=== PATIENT | male | born 1945 | race Two or more races ===

== ENCOUNTER → 2020-04-26 10:54 | Outpatient (BNVA) | payer MEDICARE, SELFPAY | PROVIDERS: Visit Provider Urology | DX: Z76.89 Persons encountering health services in other specified circumstances (principal) | CPT/HCPCS: Q3014 ==

== ENCOUNTER 2020-08-10 15:57 | Outpatient (REF) | payer MEDICARE, SELFPAY ==
--- NOTE | ~2020-08-10 | US_ITS ---
EXAMINATION: US RETROPERITONEAL LIMITED (RENAL ONLY) CLINICAL INFORMATION: Calculus of kidney. COMPARISON: None. TECHNIQUE: Real-time imaging of the kidneys. FINDINGS: RIGHT KIDNEY: 11.2 x 5.8 x 6.2 cm (SAG x AP x TRV). The kidney is normal in size, contour, and echogenicity. Renal cortical thickness is normal. No hydronephrosis. There is an anechoic exophytic cyst in the midpole measuring 1.4 x 1.4 x 1.5 cm. There is a nonobstructive echogenic stone in lower pole measuring 0.3 x 0.3 cm. LEFT KIDNEY: 12.1 x 5.2 x 6.1 cm (SAG x AP x TRV). The kidney is normal in size, contour, and echogenicity. Renal cortical thickness is normal. No hydronephrosis. There is an anechoic cyst in the midpole measuring 1.2 x 1.3 x 1.3 cm with echogenic wall calcification measuring 0.4 x 0.3 cm. There is an echogenic stone in lower pole measuring 0.3 x 0.3 and an echogenic upper pole stone measuring 0.3 x 0.3 cm. No caliectasis or hydronephrosis seen. There are multiple small echogenic foci. US/US renal BI IMPRESSION: Exophytic midpole simple cyst right kidney. Complex cyst midpole left kidney. Bilateral nonobstructive echogenic renal calculi. No hydronephrosis.
== END 2020-08-10 15:58 | disposition home or self-care (01) ==
LOC: HO.US 15:57
PROVIDERS: PCP Internal Medicine; Visit Provider Urology
DX: N20.0 Calculus of kidney (principal)
CPT/HCPCS: 76775

== ENCOUNTER → 2020-08-12 14:01 | Outpatient (BNVA) | payer MEDICARE, SELFPAY | PROVIDERS: PCP Internal Medicine; Visit Provider Urology | DX: Z13.89 Encounter for screening for other disorder (principal) | CPT/HCPCS: Q3014 ==

== ENCOUNTER → 2021-04-20 09:28 | Outpatient (BNVA) | payer MEDICARE, SELFPAY | PROVIDERS: PCP Internal Medicine; Visit Provider Urology | DX: N20.0 Calculus of kidney (principal); N40.1 Benign prostatic hyperplasia with lower urinary tract symptoms | CPT/HCPCS: 51798; 99212 ==

== ENCOUNTER 2021-08-17 07:53 | Outpatient (REF) | payer MEDICARE, SELFPAY ==
--- NOTE | ~2021-08-17 | US_ITS ---
EXAMINATION: US RETROPERITONEAL LIMITED (RENAL ONLY) CLINICAL INFORMATION: Calculus of kidney. COMPARISON: Renal ultrasound 08/10/2020. TECHNIQUE: Real-time imaging of the kidneys. FINDINGS: RIGHT KIDNEY: 10.9 x 4.8 x 5.0 cm (SAG x AP x TRV). The kidney is normal in size, contour, and echogenicity. Renal cortical thickness is normal. No hydronephrosis. There is anechoic exophytic cyst in the midpole medially measuring 1.4 x 1.3 x 1.8 cm. There is an echogenic stone in the lower pole with twinkle artifact measuring 0.6 x 0.4 x 0.6 cm. There are scattered several echogenic foci. LEFT KIDNEY: 12.9 x 6.1 x 5.8 cm (SAG x AP x TRV). The kidney is normal in size, contour, and echogenicity. Renal cortical thickness is normal. No renal calculi or hydronephrosis. There is an anechoic cyst with calcification midpole measuring 1.5 x 1.7 x 1.8 cm. There are several scattered echogenic foci. US/US renal BI IMPRESSION: 1. Simple cyst, right kidney, and a complex Bosniak type II cyst, left kidney. 2. There are bilateral nonobstructive echogenic calculi. There is no hydronephrosis. 3. There is scattered echogenic foci in both kidneys.
== END 2021-08-17 07:54 | disposition home or self-care (01) ==
LOC: HO.US 07:53
PROVIDERS: Visit Provider Urology
DX: N20.0 Calculus of kidney (principal)
CPT/HCPCS: 76775

== ENCOUNTER → 2021-10-20 16:20 | Outpatient (BNVA) | payer MEDICARE, SELFPAY | PROVIDERS: PCP Internal Medicine; Visit Provider Urology | DX: N20.0 Calculus of kidney (principal); N40.0 Benign prostatic hyperplasia without lower urinary tract symptoms | CPT/HCPCS: Q3014 ==

== ENCOUNTER → 2021-11-01 10:54 | Outpatient (BNVA) | payer MEDICARE, SELFPAY | PROVIDERS: PCP Internal Medicine; Visit Provider Urology | DX: Z13.89 Encounter for screening for other disorder (principal) | CPT/HCPCS: Q3014 ==

== ENCOUNTER 2021-11-15 06:01 | Day surgery (SDC) | payer MEDICARE, SELFPAY ==
[2021-11-09 10:13] VITALS: BMI 28.3
--- NOTE | 2021-11-14 09:51 | P.CONAN_ITS ---
Documented by User: Sherlyn Flynn NP 11/14/21 09:52 HPI - Anesthesia Eval Consult details Narrative: 76yo M for Right Lithotripsy ESW No previous ESWL on record PCP cleared [facility] Active Problems Active Problems: All Active Problems (Updated 11/09/21 @ 10:10 by Sera Portillo RN) BPH loc w urin obs/LUTS (Acute) Nephrolithiasis (Acute) Past Medical History Medical History Bladder outlet obstruction BPH (benign prostatic hyperplasia) Cerebral hemorrhage COVID-19 vaccine series completed Diverticulitis Elevated cholesterol H/O urinary retention History of kidney stones HTN (hypertension) Renal cyst, acquired Skin cancer Sleep apnea Surgical History Surgical History (Updated 11/09/21 @ 10:08 by Sera Portillo RN) History of colon resection Hx of arthroscopic knee surgery Hx of craniotomy Hx of cystoscopy Hx of lithotripsy Social History Social History Are you a primary home care and home health aides teacher to a significant other at home: No Do you presently have visiting nurse or other home services: No Patient Tobacco Use Status: Former Tobacco user Quit Date: Use of substances other than those prescribed or required for medical reasons: No Have you been hit, kicked, punched, or otherwise hurt by someone within the past year? If so, by whom?: No Are you DNR?: No Advance Directives: No Advance Directives Information Provided: Yes Advance Directives on File: No Recently lost weight without trying: No Eating poorly because of decreased appetite: No Nutrition Risks: Surgical patient >75years Poor oral hygiene: No (has dental implants) Meds Allergies Allergy/AdvReac Type Severity Reaction Status Date / Time adhesive tape Allergy Intermediate Rash Verified 11/09/21 10:12 levofloxacin [Levaquin] Allergy Intermediate delayed Verified 11/09/21 10:12 hypersensitivity reaction Quinolones Allergy Intermediate delayed Verified 11/09/21 10:13 hypersensitivity reaction Home Medications Medication Instructions Recorded Confirmed Last Taken Type atorvastatin 20 mg tablet 20 mg PO DAILY 04/26/20 11/09/21 Unknown History enalapril 10 1 tab PO DAILY 04/26/20 11/09/21 Unknown History mg-hydrochlorothiazide 25 mg tablet enalapril maleate 5 mg tablet 5 mg PO DAILY 04/20/21 11/09/21 Unknown History aspirin 81 mg tablet,delayed 81 mg PO DAILY 11/09/21 11/09/21 Unknown History release Exam Exam Date and Time: November 14, [id number] Height,Weight and Vital Signs: Height 5 ft 9 in Weight 87.09 kg Assessment and Plan Assessment Anesthesia Assessment: Chart Reviewed Documented by User: Peggy Benson MD 11/15/21 09:01 [facility] Past Medical History Medical History Bladder outlet obstruction BPH (benign prostatic hyperplasia) Cerebral hemorrhage COVID-19 vaccine series completed Diverticulitis Elevated cholesterol H/O urinary retention History of kidney stones HTN (hypertension) Renal cyst, acquired Skin cancer Sleep apnea Functional capacity: independent ambulation Family History Family history of problems with anesthesia: No Surgical History Surgical History (Updated 11/09/21 @ 10:08 by Sera Portillo RN) History of colon resection Hx of arthroscopic knee surgery Hx of craniotomy Hx of cystoscopy Hx of lithotripsy Social History Social History Are you a primary home care and home health aides teacher to a significant other at home: No Do you presently have visiting nurse or other home services: No Patient Tobacco Use Status: Former Tobacco user Quit Date: Use of substances other than those prescribed or required for medical reasons: No Have you been hit, kicked, punched, or otherwise hurt by someone within the past year? If so, by whom?: No Are you DNR?: No Advance Directives: No Advance Directives Information Provided: Yes Advance Directives on File: No Recently lost weight without trying: No Eating poorly because of decreased appetite: No Nutrition Risks: Surgical patient >75years Poor oral hygiene: No (has dental implants) Meds Allergies Allergy/AdvReac Type Severity Reaction Status Date / Time adhesive tape Allergy Intermediate Rash Verified 11/09/21 10:12 levofloxacin [Levaquin] Allergy Intermediate delayed Verified 11/09/21 10:12 hypersensitivity reaction Quinolones Allergy Intermediate delayed Verified 11/09/21 10:13 hypersensitivity reaction Home Medications Medication Instructions Recorded Confirmed Last Taken Type atorvastatin 20 mg tablet 20 mg PO DAILY 04/26/20 11/09/21 Unknown History enalapril 10 1 tab PO DAILY 04/26/20 11/09/21 Unknown History mg-hydrochlorothiazide 25 mg tablet enalapril maleate 5 mg tablet 5 mg PO DAILY 04/20/21 11/09/21 Unknown History aspirin 81 mg tablet,delayed 81 mg PO DAILY 11/09/21 11/09/21 Unknown History release Exam Airway Mallampati Class: III TM Dist: >3cm Neck ROM: Full Heart: RRR Lungs: CYA Assessment and Plan Final Anesthetic Review Family History of Problems with Anesthesia: No ASA Class: II Final Preanesthetic Review: No Changes in Pt Med Stat, Consent Obtained/Reviewed and Anes Risks/Benef Reviewed Patient Risk: Low Procedure Risk: Low Anesthetic Plan Anesthetic Plan: GA Disposition: Standard PACU
--- NOTE | ~2021-11-15 | XR_ITS ---
EXAMINATION: XR ABDOMEN KUB CLINICAL INDICATION: Right stone ESWL COMPARISON: None TECHNIQUE: 2 views of the abdomen. FINDINGS: The bowel gas pattern is normal with no evidence of ileus or obstruction. Stool within the colon limits assessment of the renal shadows. Possible 4 mm stone lower pole right kidney. No additional urinary calculi. No acute osseous abnormalities. Degenerative changes present throughout the spine and bilateral hips. XR/XR KUB IMPRESSION: Possible 4 mm nonobstructive calculus, lower pole right kidney.
[2021-11-15 06:47] VITALS: BP 136/70; PULSE 60; RESP 16; TEMP 36.5; O2SAT 98
[2021-11-15] MEDS: Acetaminophen 325 MG TABLET 650 MG PO (06:54)
[2021-11-15] MEDS: Lactated Ringers 1,000 ML 100 ML IVCONT (06:59)
--- NOTE | 2021-11-15 07:38 | MHC.SHP ---
Pre-Procedural Eval Section A Date of Service: 11/15/21 The patient is an INPATIENT: No Changes since office visit: No Cold of Flu in the past 2 weeks, No New Medical Problems, No Changes in Medication and No Patient answered all questions The History & Physical has been completed within 30 days and I have reviewed it.: Yes Section B Chief Complaint: kidney stone Details of Present Illness: right eswl Allergies: Allergies Allergy/AdvReac Type Severity Reaction Status Date / Time adhesive tape Allergy Intermediate Rash Verified 11/09/21 10:12 levofloxacin [Levaquin] Allergy Intermediate delayed Verified 11/09/21 10:12 hypersensitivity reaction Quinolones Allergy Intermediate delayed Verified 11/09/21 10:13 hypersensitivity reaction Review of Systems Sugical H&P ROS: Negative: Constitution, Cardiovascular, Respiratory, Neurological, Psychiatric, Hem-Onc, Allergic/Immunologic, Gastrointestinal, Genitourinary, Musculoskeletal, Integumentary, Endocrine and Eyes/Ears/Nose/Throat Exam Surgical H&P Exam: Normal: HEENT, Normal: Heart, Normal: Lungs, Normal: Extremities, Normal: Abdomen, Normal: Skin and Normal: Neurological Plan Diagnosis/Plan: Unchanged (right eswl) I have reviewed the history and physical and performed a pertinent physical examination on my patient. No changes have occurred unless specified.
--- NOTE | 2021-11-15 07:55 | P.OP_ITS ---
Operative Note Operative Note Date of Service: 11/15/21 Narrative: PreOperative Diagnosis: right Renal stones Post Operative Diagnosis: right Renal stones Procedure: right ESWL Surgeon: Dr Francisco Salcedo Anesthesia: mac/sedation Indications for procedure: The patient understands ESWL may be a staged procedure and subsequent intervention may be required based on imaging after ESWL. They also understand there is a risk of bleeding to the kidney, infection, damage to adjacent organs, and stone migration following the procedure. - Imaging right 6mm lower pole stone Procedure: After informed consent was verified the patient was brought to the operating room and placed in a supine position. Anesthesia was performed per protocol. Safety pause time-out was performed. Imaging was displayed in the room and laterality confirmed. ESWL was performed. The 1st 500 shocks were performed at 60 hertz. These were performed with increasing power. Once maximum power was reached the rate was increased to 180 hertz. A total of 2500 shocks were given. Targetted imaging with ultrasound/fluoroscopy showed stone smudging suggestive of disintegration. The patient tolerated the procedure well and was transferred to the recovery area upon completion. Post procedure imaging will be organized. There was no sarbjit dence for flank discoloration.
[2021-11-15 08:20] VITALS: BP 144/73; PULSE 49; RESP 16; TEMP 36.6; O2SAT 99
[2021-11-15 08:35] VITALS: BP 133/66; PULSE 53; RESP 16; O2SAT 97
[2021-11-15 08:50] VITALS: BP 126/64; PULSE 50; RESP 16; O2SAT 98
--- NOTE | 2021-11-15 09:02 | HO.POSTANES ---
Post Anesthesia Evaluation Post Anesthesia Evaluation Vital Signs: Vital Signs Temp Pulse Resp BP Pulse Ox O2 Del Method 11/15/21 08:35 53 16 133/66 97 Room Air 11/15/21 08:20 97.8 F 49 L 16 144/73 H 99 Room Air 11/15/21 06:47 97.7 F 60 16 136/70 98 Room Air Anesthesia: General LMA Mental Status: Awake Pain Control: Satisfactory Nausea/Vomiting: None Hydration: Adequate Anesthesia-Related Issues: No Anes. Related Issues
[2021-11-15 09:05] VITALS: BP 132/70; PULSE 53; RESP 16; TEMP 36.6; O2SAT 98
== END 2021-11-15 08:45 ==
LOC: HO.SSS 06:02
PROVIDERS: PCP Internal Medicine; Visit Provider Urology
PROC: (CPT 50590; principal; 2021-11-15 07:30)
DX: N20.0 Calculus of kidney (principal); Z87.442 Personal history of urinary calculi; N40.0 Benign prostatic hyperplasia without lower urinary tract symptoms; N28.1 Cyst of kidney, acquired; R97.20 Elevated prostate specific antigen [PSA]; I10 Essential (primary) hypertension; E78.00 Pure hypercholesterolemia, unspecified; G47.33 Obstructive sleep apnea (adult) (pediatric); Z99.89 Dependence on other enabling machines and devices; Z79.82 Long term (current) use of aspirin; Z79.899 Other long term (current) drug therapy; Z88.1 Allergy status to other antibiotic agents; Z87.19 Personal history of other diseases of the digestive system; Z90.49 Acquired absence of other specified parts of digestive tract; Z85.828 Personal history of other malignant neoplasm of skin; Z87.891 Personal history of nicotine dependence
CPT/HCPCS: 50590; 74018; J2250; J3010

== ENCOUNTER → 2021-12-27 14:26 | Outpatient (BNVA) | payer MEDICARE, SELFPAY | PROVIDERS: PCP Internal Medicine; Visit Provider Urology | DX: N40.0 Benign prostatic hyperplasia without lower urinary tract symptoms (principal); N20.0 Calculus of kidney | CPT/HCPCS: Q3014 ==

== ENCOUNTER → 2022-07-03 10:56 | Outpatient (BNVA) | payer MEDICARE, SELFPAY | PROVIDERS: PCP Internal Medicine; Visit Provider Urology | DX: N40.1 Benign prostatic hyperplasia with lower urinary tract symptoms (principal); N20.0 Calculus of kidney | CPT/HCPCS: 99212 ==

== ENCOUNTER 2022-12-27 09:27 | Outpatient (AMB) | payer MEDICARE, SELFPAY ==
--- NOTE | 2022-12-27 09:28 | MHC.OFFVIS ---
Intake Intake Visit Reasons: 6M PSA/US(set) Intake Note: Patient is present for Telephone PSA/US Urology Med: Dutasteride Terazosin, Vitamin B6 Antibiotic Allergy: Levofloxacin Blood Thinner:Aspirin Allergies adhesive tape Allergy (Intermediate, Verified 12/27/22 09:31) Rash levofloxacin [Levaquin] Allergy (Intermediate, Verified 12/27/22 09:31) delayed hypersensitivity reaction Quinolones Allergy (Intermediate, Verified 12/27/22 09:31) delayed hypersensitivity reaction Medication List - Last Reconciled 12/27/22 by Francisco Salcedo MD aspirin 81 mg PO DAILY atorvastatin 20 mg PO DAILY ciclopirox 0.77% appl topical dutasteride 0.5 mg PO DAILY 90 days enalapril maleate 5 mg PO DAILY enalapril-hydrochlorothiazide 10-25 mg 1 tab PO DAILY mupirocin 2% topical BID naproxen 500 mg PO BID PRN 7 days pyridoxine (vitamin B6) 50 mg PO DAILY 90 days terazosin 1 mg PO BEDTIME 2 weeks tramadol 50 mg PO Q6H PRN HPI HPI Comments History of Present Illness Details 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 He is a patient of Dr. Chow. 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 Current visit is for further evaluation of, lower urinary tract symptoms - urinary retention - had episode 02/18 [facility] with catheter and 700cc drainage. Current treatment includes medication, dutasteride. Prior treatments include alpha blockers - heart block with terazsoin and tamsulosin. Prostate Symptom Score 10/18 , Mild (0-8), Bother 2 08/19 , Mild (0-8), Bother 2. Symptoms include 10/18 , weak stream, and are stable 02/18 retention 08/19 , weak stream, incomplete emptying, and are stable. Results from testing include renal/bladder us Yes date 02/14/2018 PVR 115 prostate size 85 PSA - 04/22 - 1.3, 05/24 1.7, 11/23 0.8 Prior Prostate Score moderate. Prostate volume 30-50gm. Testing at next visit will include bladder scan. Nephrolithiasis/Urolithiasis: Discussed imaging which shows bilateral punctate stones and bilateral 1.5 cm cysts. Urolithiasis was diagnosed years ago. Prior treatment(s) include ESWL x5. Last in 1998. Had undergone [facility] therapy previously. Prior imaging includes an x-ray August 2014 negative 12/17 , a renal ultrasound - simple cyst. - 07/24 renal ultrasound bilateral cyst 1.5 cm bilateral stones 2-3 mm - 07/25 renal ultrasound with bilateral cyst 1.5 cm, 6 mm stones on right lower pole - 12/22 renal ultrasound bilateral cysts 1.5 cm, 4 mm stone right upper pole - 05/25 renal ultrasound bilateral cysts 1.5 cm, bilateral stones 4 mm Minimal symptoms currently. [facility] Medical History Bladder outlet obstruction BPH (benign prostatic hyperplasia) Cerebral hemorrhage COVID-19 vaccine series completed Diverticulitis Elevated cholesterol H/O urinary retention History of kidney stones HTN (hypertension) Renal cyst, acquired Skin cancer Sleep apnea Surgical History History of colon resection Hx of arthroscopic knee surgery Hx of craniotomy Hx of cystoscopy Hx of lithotripsy Social History Are you a primary post acute care nurse to a significant other at home: No Do you presently have visiting nurse or other home services: No Patient Tobacco Use Status: Former Tobacco user Quit Date: Review of Systems Const All systems reviewed & are unremarkable except as noted in HPI and below Reports no additional complaints Resp Reports no additional complaints GI Reports no additional complaints Reports as per HPI Musc Reports no additional complaints Physical Exam Telemedicine evaluation Appropriate responses Regular breathing rate and rhythm HEENT Head: Yes normal to inspection Ears: hearing grossly normal bilaterally Eyes General: appearance normal, both eyes and all related structures Neck Neck: Yes normal visual inspection Chest Chest palpation & inspection: normal inspection of the chest Resp Effort & Inspection: normal respiratory effort and able to speak in complete sentences Assessment & Plan Assessment & Plan (1) Nephrolithiasis: Code(s): N20.0 - Calculus of kidney (2) BPH loc w urin obs/LUTS: Code(s): N40.1 - Benign prostatic hyperplasia with lower urinary tract symptoms Plan Six month follow-up imaging Orders: Orders US renal BI 6 Months N20.0 - Calculus of kidney Patient Instructions: Imaging studies, laboratory and physical exam results were discussed and reviewed in detail. No major barriers to patient understanding were identified. An opportunity to ask questions regarding the treatment plan was provided. All questions were answered. The patient expressed understanding and agreement with the above treatment plan. The patient is aware they should contact our office by phone for worsening of their current condition or the appearance of new urologic symptoms. Compliance is encouraged with any medications and followup testing that is ordered. It is a privilege to participate in the urologic care of your patient. If you have any questions or concerns regarding treatment for the above conditions, or other urologic issues, please do not hesitate to contact me. The office telephone contact is [phone]. This note is constructed using voice recognition software. While every effort has been made to ensure accuracy director of premium seat sales errors may have been included. Yours sincerely, Dr Francisco Salcedo MD, [facility] - Urology Providers of Expert, Compassionate Care for the Genitourinary System Telehealth Telehealth Location of provider rendering services: practice address Location of patient: address on file Patient Identification confirmed using: Name, : Yes Telehealth method: voice only Patient verbally consented to treatment: Yes Patient verbally consented to billing insurance company: Yes Patient informed of any privacy concerns related to visit: Yes Coding Level of Care Code Tele Est Pt Level 3 (68400) Diagnoses Nephrolithiasis N20.0 BPH loc w urin obs/LUTS N40.1
== END 2022-12-27 10:04 | disposition home or self-care (01) ==
LOC: HO.HUSH 09:27
PROVIDERS: PCP Internal Medicine; Visit Provider Urology
DX: N20.0 Calculus of kidney (principal); N40.1 Benign prostatic hyperplasia with lower urinary tract symptoms
CPT/HCPCS: 99442

== ENCOUNTER → 2022-12-27 09:27 | Outpatient (BNVA) | payer MEDICARE, SELFPAY | PROVIDERS: PCP Internal Medicine; Visit Provider Urology ==

== ENCOUNTER 2023-06-28 10:37 | Outpatient (AMB) | payer MEDICARE, SELFPAY ==
--- NOTE | 2023-06-28 11:16 | A.OFFVIS_ITS ---
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 He is a patient of Dr. Chow. 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 Current visit is for further evaluation of, lower urinary tract symptoms - urinary retention - had episode 02/18 [facility] ER with catheter and 700cc drainage. Current treatment includes medication, dutasteride. Prior treatments include alpha blockers - heart block with terazsoin and tamsulosin. Prostate Symptom Score 10/18 , Mild (0-8), Bother 2 08/19 , Mild (0-8), Bother 2. Symptoms include 10/18 , weak stream, and are stable 02/18 retention 08/19 , weak stream, incomplete emptying, and are stable. Results from testing include renal/bladder us Yes date 02/14/2018 PVR 115 prostate size 85 PSA - 04/22 - 1.3, 05/24 1.7, 11/23 0.8 Prior Prostate Score moderate. Prostate volume 30-50gm. Testing at next visit will include bladder scan. Nephrolithiasis/Urolithiasis: Discussed imaging which shows bilateral punctate stones and bilateral 1.5 cm cysts. Urolithiasis was diagnosed years ago. Prior treatment(s) include ESWL x5. Last in 11/22 Prior imaging includes an x-ray August 2014 negative 12/17 , a renal ultrasound - simple cyst. - 07/24 renal ultrasound bilateral cyst 1.5 cm bilateral stones 2-3 mm - 07/25 renal ultrasound with bilateral cyst 1.5 cm, 6 mm stones on right lower pole - 12/22 renal ultrasound bilateral cysts 1.5 cm, 4 mm stone right upper pole - 05/24 renal ultrasound bilateral cysts 1.5 cm, bilateral stones 4 mm - 05/25 BILATERAL RENAL CYSTS, BILATERAL STONE 6 MM Minimal symptoms currently. [facility] Medical History COVID-19 vaccine series completed Skin cancer Sleep apnea Cerebral hemorrhage Elevated cholesterol HTN (hypertension) BPH (benign prostatic hyperplasia) History of kidney stones Diverticulitis Bladder outlet obstruction Renal cyst, acquired H/O urinary retention Surgical History Hx of arthroscopic knee surgery Hx of cystoscopy Hx of craniotomy Hx of lithotripsy History of colon resection Social History Are you a primary managed care provider to a significant other at home: No Do you presently have visiting nurse or other home services: No Patient Tobacco Use Status: Former Tobacco user Quit Date: Review of Systems Const Denies chills and Denies fever(s) Card Reports no additional complaints and Denies syncope Resp Denies cough GI Denies abdominal pain and Denies heartburn Reports as per HPI and Denies change in libido Neuro Denies syncope Psych Denies change in libido Endo Denies change in libido Physical Exam Const General: cooperative, healthy appearing, comfortable and no acute distress Orientation/consciousness: patient oriented x3 HEENT Face and sinus: Yes normal facial exam Mouth: moist mucous membranes Neck Neck: Yes normal visual inspection, Yes full ROM and Yes trachea midline Chest Chest palpation & inspection: normal inspection of the chest Resp Effort & Inspection: normal respiratory effort, able to speak in complete sentences and no respiratory distress GI Inspection: Yes normal to inspection Rectal Exam - Male: Yes normal sphincter tone and Yes prostate normal Male General Exam: Yes normal external exam Penis: normal penis and circumcised Meatus: meatus normal Scrotum: scrotum normal Testes: Testes normal Back/Spine/Pelvis Cervical Spine: normal cervical lordosis Thoracic/Lumbar Spine: thoracic and lumbar spine normal to inspection Skin General skin exam: no rashes or lesions noted Neuro General: patient oriented x3, gait normal, tone normal and moves all extremities Extrem General: Yes normal to inspection and Yes capillary refill normal Office Procedures Post Void Residual Post Residual Void Post Void Residual (PVR): 55 [id number] Void Residual by ultrasound Assessment & Plan Assessment & Plan (1) BPH loc w urin obs/LUTS: Code(s): N40.1 - Benign prostatic hyperplasia with lower urinary tract symptoms (2) Nephrolithiasis: Code(s): N20.0 - Calculus of kidney Plan 12 month follow-up Orders: Orders US renal BI 364 Days N20.0 - Calculus of kidney AMB Post Void Residual by ultrasound 06/28/23 N40.1 - Benign prostatic hyperplasia with lower urinary tract symptoms Patient Instructions: Imaging studies, laboratory and physical exam results were discussed and reviewed in detail. No major barriers to patient understanding were identified. An opportunity to ask questions regarding the treatment plan was provided. All questions were answered. The patient expressed understanding and agreement with the above treatment plan. The patient is aware they should contact our office by phone for worsening of their current condition or the appearance of new urologic symptoms. Compliance is encouraged with any medications and followup testing that is ordered. It is a privilege to participate in the urologic care of your patient. If you have any questions or concerns regarding treatment for the above conditions, or other urologic issues, please do not hesitate to contact me. The office telephone contact is [phone]. This note is constructed using voice recognition software. While every effort has been made to ensure accuracy railroad car truck builder errors may have been included. Yours sincerely, Dr Francisco Salcedo MD, [facility] - Urology Providers of Expert, Compassionate Care for the Genitourinary System Coding Level of Care Code Est Pt Level 4 (95368) Diagnoses BPH loc w urin obs/LUTS N40.1 Nephrolithiasis N20.0 CPT Codes Post Residual Void - PVR CPT Code: 54000-[id number] Void Residual by ultrasound ([id number])
== END 2023-06-28 11:54 | disposition home or self-care (01) ==
PROVIDERS: PCP Internal Medicine; Visit Provider Urology
DX: N40.1 Benign prostatic hyperplasia with lower urinary tract symptoms (principal); N20.0 Calculus of kidney
CPT/HCPCS: 99213

== ENCOUNTER → 2023-06-28 10:37 | Outpatient (BNVA) | payer MEDICARE, SELFPAY | PROVIDERS: PCP Internal Medicine; Visit Provider Urology | DX: N40.1 Benign prostatic hyperplasia with lower urinary tract symptoms (principal); N13.8 Other obstructive and reflux uropathy; N20.0 Calculus of kidney | CPT/HCPCS: 51798; 99212 ==

== ENCOUNTER 2024-04-25 08:24 | Outpatient (REF) | payer MEDICARE, OTHER, SELFPAY ==
[2024-04-25 09:47] LABS: Appearance Urine Clear; Color Urine Yellow; Glucose Urine UA Negative (Negative); Leukocyte Esterase Urine Trace (Negative); Nitrite Urine Negative (Negative); PH 5.5 (5.0-9.0); UMIC TRIGGER UA YES; Urine Blood Negative (Negative); Urine Ketones Negative (Negative); Urine Protein Negative (Neg-Trace)
[2024-04-25 09:53] LABS: Bacteria Urine None Seen (None Seen); Hyaline Casts Urine 0-2 /LPF (0-2); RBC Urine 0-2 /HPF (0-2); Squamous Epithelial Cell Urine 0-2 /HPF (0-2); WBC Urine 0-5 /HPF (0-5)
== END 2024-04-25 08:25 | disposition home or self-care (01) ==
LOC: HO.LAB 08:24
PROVIDERS: PCP Internal Medicine; Visit Provider Urology
DX: N20.0 Calculus of kidney (principal); N40.1 Benign prostatic hyperplasia with lower urinary tract symptoms
CPT/HCPCS: 81001; 87086

== ENCOUNTER 2024-04-29 09:49 | Outpatient (REF) | payer MEDICARE, OTHER, SELFPAY | END 2024-04-29 09:50 | disposition home or self-care (01) | LOC: HO.US 09:49 | PROVIDERS: PCP Internal Medicine; Visit Provider Urology | DX: N20.0 Calculus of kidney (principal); N40.1 Benign prostatic hyperplasia with lower urinary tract symptoms | CPT/HCPCS: 76775 ==

== ENCOUNTER 2024-06-30 10:28 | Outpatient (AMB) | payer MEDICARE, SELFPAY ==
--- NOTE | 2024-06-30 10:38 | MHC.OFFVIS ---
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 He is a patient of Dr. Chow. 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 Current visit is for further evaluation of, lower urinary tract symptoms - urinary retention - had episode 02/18 [facility] with catheter and 700cc drainage. Current treatment includes medication, dutasteride. Prior treatments include alpha blockers - heart block with terazsoin and tamsulosin. Prostate Symptom Score 10/18 , Mild (0-8), Bother 2 08/19 , Mild (0-8), Bother 2. Symptoms include 10/18 , weak stream, and are stable 02/18 retention 08/19 , weak stream, incomplete emptying, and are stable. Results from testing include renal/bladder us Yes date 02/14/2018 PVR 115 prostate size 85 PSA - 04/22 - 1.3, 05/24 1.7, 11/23 0.8 Prior Prostate Score moderate. Prostate volume 30-50gm. Testing at next visit will include bladder scan. Nephrolithiasis/Urolithiasis: Discussed imaging which shows bilateral punctate stones and bilateral 1.5 cm cysts. Urolithiasis was diagnosed years ago. Prior treatment(s) include ESWL x5. Last in 11/22 Prior imaging includes an x-ray August 2014 negative 12/17 , a renal ultrasound - simple cyst. - 07/24 renal ultrasound bilateral cyst 1.5 cm bilateral stones 2-3 mm - 07/25 renal ultrasound with bilateral cyst 1.5 cm, 6 mm stones on right lower pole - 12/22 renal ultrasound bilateral cysts 1.5 cm, 4 mm stone right upper pole - 05/24 renal ultrasound bilateral cysts 1.5 cm, bilateral stones 4 mm - 05/25 BILATERAL RENAL CYSTS, BILATERAL STONE 6 MM Minimal symptoms currently. [facility], [facility] Medical History COVID-19 vaccine series completed Skin cancer Sleep apnea Cerebral hemorrhage Elevated cholesterol HTN (hypertension) BPH (benign prostatic hyperplasia) History of kidney stones Diverticulitis Bladder outlet obstruction Renal cyst, acquired H/O urinary retention Surgical History Hx of arthroscopic knee surgery Hx of cystoscopy Hx of craniotomy Hx of lithotripsy History of colon resection Social History Are you a primary menagerie caretaker to a significant other at home: No Do you presently have visiting nurse or other home services: No Patient Tobacco Use Status: Former Tobacco user Results AMB Urinalysis, Automated UA Leukoctes 0 Taylor/uL Last Edit by CARLIN Easton on 06/30/24 10:51 UA Nitrite Negative Last Edit by CARLIN Easton on 06/30/24 10:51 UA Urobilinogen 0.2 mg/dL Last Edit by CARLIN Easton on 06/30/24 10:51 UA Protein 0 mg/dL Last Edit by CARLIN Easton on 06/30/24 10:51 UA pH 6.0 Last Edit by CARLIN Easton on 06/30/24 10:51 UA Blood 0 Jonh/uL Last Edit by CARLIN Easton on 06/30/24 10:51 UA Specific [place] 1.010 Last Edit by CARLIN Easton on 06/30/24 10:51 UA Ketone Negative Last Edit by CARLIN Easton on 06/30/24 10:51 UA Bilirubin 0 mg/dL Last Edit by CARLIN Easton on 06/30/24 10:51 UA Glucose 0 mg/dL Last Edit by CARLIN Easton on 06/30/24 10:51 Results Reviewed Results Reviewed: Laboratory Last Values Urine pH (Auto) 6.0 06/30/24 10:50 Specific [place] (Auto) 1.010 06/30/24 10:50 Urine Protein (Auto) 0 mg/dL 06/30/24 10:50 Glucose (UA)(Auto) 0 mg/dL 06/30/24 10:50 Urine Ketones (Auto) Negative 06/30/24 10:50 Urine Blood (Auto) 0 Jonh/uL 06/30/24 10:50 Urine Nitrite (Auto) Negative 06/30/24 10:50 Urine Bilirubin (Auto) 0 mg/dL 06/30/24 10:50 Urine Urobilinogen (Auto) 0.2 mg/dL 06/30/24 10:50 Leukocyte Esterase (Auto) 0 Taylor/uL 06/30/24 10:50 Assessment & Plan Assessment & Plan Orders: Orders US renal BI 12 Months N20.0 - Calculus of kidney AMB Urinalysis Automated Today Z13.9 - Encounter for screening, unspecified Coding
--- OUTSIDE RECORDS SUMMARY | 2024-06-30 11:28 | XMS_ITS | Data Portability ---
Author Organization [facility], Main Office Address [address] [place] [address] Care Team Providers Care Cost Recorder Name Role Phone JJ FINLEY Primary Care Provider [phone] TG OLIVO Slat Basket Maker Machine EDGAR DEAN General Surgeon MADDY VILLA OTHER BAUTISTA HALL Medical Oncologist Assessment Encounter Date Assessment Date Assessment LastModified by Organization Details LastModified Time 04/13/2014 04/13/2014 Exam consistent with adhesive capsulitis. Declines further evaluation for shoulder pain. Discussed CV risk.? ? ?We reviewed AHA cardiovascular risk model, which indicates at 10 year risks of stroke and heart attack at 17% for this patient. If lipids were well controlled approx 3 percent reduction in absolute risk would be calculated. I doubt significant inflammatory cause for arthralgia, but labs to evaluate are ordered.? ? ? Up to date with for management of recurrent nephrolithiasis. [facility] Not available 04/18/2014 17:57:44 05/16/2015 05/16/2015 We reviewed AHA cardiovascular risk model, which indicates at 10 year risks of stroke and heart attack at 19% for this patient. We discussed risks and benefits of adding statin for elevated cholesterol. His risk by AHA model is elevated and he agrees to trial of statin. Notes 10 lbs weight loss with increased exercise. Would like to add low dose beta nikki in the afternoon for occasional flushing and spikes of BP which are symptomatic. Morning BP has been very good. Continues to use CPAP for treatment of MARY. Notes excellent adherence to therapy and has been continuing to receive clinical benefit including improved QOL as well as improving control of BP. Advised to continue treatment. pheuth Not available 04/28/2016 08:00:52 Plan of Treatment Reminders Order Date Submit Date Provider Last Modified By Organization Details Last Modified Time Details Appointments None record ed. Lab CRP, high sensit ivity, serum or plasma 2013 014 [facility] Not [facility] 4 17:58:37 lipid panel, serum 2013 014 [facility] Not available 4 17:58:37 ALT (mir ne aminot srinivas rase), serum or plasma 2013 014 [facility] Not available 4 17:58:37 ESR (eryth rocyte sedime ntatio n rate), blood 2013 014 [facility] Not available 4 17:58:37 lyme diseas e Ab, total, serum 2013 014 [facility] Not available 4 17:58:36 CK (creat ine kinase ) isoenz ymes, serum 2013 014 [email or web address] Not available 5 10:35:20 CBC w/ auto diff 2013 014 [facility] Not available 4 17:58:37 PSA, serum or plasma - Screen ing 2013 014 [facility] Not available 4 17:58:37 vitami n D, 25-hyd marlena, total, serum 2013 014 [facility] Not [facility] 4 17:58:37 BMP, serum or plasma 2013 014 [facility] Not available 4 17:58:36 urinal ysis, comple te 2013 014 [facility] Not available 4 17:58:37 CK (creat ine kinase ), total, serum 2014 015 [facility] Not available 6 09:31:34 lipid panel, serum 2014 015 [facility], [address], [place], [address], 6 09:31:28 ALT (mir mancuso srinivas morrison), serum or plasma 2014 015 [facility] Not available 6 09:31:33 fecal occult blood, stool - For Cologu kathy Test 2016 017 [facility] [employer] (Cologuard Orders Only), [address], [address], [place], [address], 7 16:19:00 Referral nutrit ionist /dieti morena referr al 2013 014 [email or web address] Not available 4 08:51:47 urolog ist referr al 2014 015 [facility] Not available 6 09:37:45 sleep medici ne referr al 2016 017 [facility], [address] [place] [address] Dr, [facility], [place], [address], 7 11:23:55 nutrit ionist /dieti morena referr al 2016 017 [email or web address] Not available 7 11:24:33 Procedures None record ed. Surgeries None record ed. Imaging None record ed. Medication Orders propra nolol 10 mg tablet 2014 015 [id number], [address] [place], [address], 5 08:25:40 propra nolol 10 mg tablet 2014 015 [facility], [address] [place], [address], 5 08:25:40 atorva statin 40 mg tablet 2014 015 [facility], [address] [place], [address], 5 08:25:40 atorva statin 40 mg tablet 2014 015 [facility], [address] [place], [address], 5 08:25:40 enalap ril 10 mg-hyd rochlo rothia zide 25 mg tablet 2016 017 [facility], [address] [place], [address], 7 11:11:49 Patient Targets Encounter Date Encounter Id Patient Goals Patient Target Last Modified By Organization Details Last Modified Time 04/13/2014 [id number] entry rep goal of Blood Pressure 140 / 90 Not available Not available Not available entry rep goal of Exercise level Not available Not available Not available entry rep goal of Tobacco Smoking Status Not available Not available Not available Pt advised and agrees to eat a low salt low fat diet; to do moderate exercise (such as walking) 150 minutes per week; to limit alcohol intake (goal of 2 drinks per day or less for men or 1 for woman). and to monitor dietary sodium. Will monitor home blood pressures and bring readings to appointments. [facility] Not available 04/18/2014 17:57:44 05/16/2015 [id number] entry rep goal of Blood Pressure 140 / 90 Not available Not available Not available USP goal of Exercise level Not available Not available Not available entry rep goal of Tobacco Smoking Status Not available Not available Not available Pt advised and agrees to eat a low salt low fat diet; to do moderate exercise (such as walking) 150 minutes per week; to limit alcohol intake (goal of 2 drinks per day or less for men or 1 for woman). and to monitor dietary sodium. Will monitor home blood pressures and bring readings to appointments. [facility] Not available 05/17/2015 08:25:41 06/05/2016 [id number] USP goal of Blood Pressure 140 / 90 Not available Not available Not available USP goal of Exercise level Not available Not available Not available entry rep goal of Tobacco Smoking Status Not available Not available Not available Pt advised and agrees to eat a low salt low fat diet; to do moderate exercise (such as walking) 150 minutes per week; to limit alcohol intake (goal of 2 drinks per day or less for men or 1 for woman). and to monitor dietary sodium. Will monitor home blood pressures and bring readings to appointments. Patient preferences and goals incorporated in plan and updated/modifie d as needed to reflect progress toward goal. [facility] Not available 06/07/2016 19:21:32 Patient Instructions Encounter Date Encounter Id Patient Instructions Last Modified By Organization Details Last Modified Time 04/13/2014 [id number] Prostate Cancer Screening [email or web address] Not available 04/18/2014 17:58:36 high blood pressure: care instructions [facility] Not available 04/18/2014 17:58:37 learning about high blood pressure phelmuth Not available 04/18/2014 17:58:37 starting a weight loss plan: care instructions [email or web address] Not available 04/21/2014 09:24:05 Nutrition Referral and Weight Management Follow-up Information [facility] Not available 04/21/2014 09:24:05 blood in the urine: care instructions phelmuth Not available 04/18/2014 17:58:36 Medications were reviewed at this visit and reconciled. Changes in the active medications are reflected in the current medication list and discussed with patient (or caregiver) with instructions for follow up as needed. Printed medication list provided to the patient as part of the visit summary. phelmuth Not available 04/18/2014 17:57:44 05/16/2015 [id number] sleep apnea: [facility] Not available 05/17/2015 08:25:40 varicella vaccine: care instructions phelmuth Not available 05/17/2015 08:25:40 high blood pressure: care [facility] Not available 05/17/2015 08:25:40 learning about high blood pressure [facility] Not available 05/17/2015 08:25:40 Medications were reviewed at this visit and reconciled. Changes in the active medications are reflected in the current medication list and discussed with patient (or caregiver) with instructions for follow up as needed. Printed medication list provided to the patient as part of the visit summary. phelmuth Not available 05/17/2015 08:25:41 06/05/2016 [id number] high cholesterol: care instructions [email or web address] Not available 06/05/2016 11:24:07 age-related macular degeneration: care instructions [email or web address] Not available 06/05/2016 11:24:08 sleep apnea: care instructions [email or web address] Not available 06/05/2016 11:24:07 When You Want to Lose Weight: Care Instructions [email or web address] Not available 06/05/2016 11:24:08 Nutrition Referral and Weight Management Follow-up Information [email or web address] Not available 06/05/2016 11:23:53 high blood pressure: care instructions [email or web address] Not available 06/05/2016 11:24:07 learning about high blood pressure [email or web address] Not available 06/05/2016 11:24:07 benign prostatic hyperplasia: care instructions [email or web address] Not available 06/05/2016 11:24:08 Medications (OTC, herbal therapies, supplements) reviewed and reconciled with patient and or caregiver, including potential side effects, drug interactions, instructions, and the consequences of not taking medication. Reviewed potential barriers to medication adherence, such as side effects from medication or cost of medication. [email or web address] Not available 06/07/2016 19:21:43 Reason for Referral Gum Sprayer/dietitian Refer ral for Body mass index 30+ - obesity Referring Physician: Jj Finley, Internal Medicine, Encounter Date: 04/13/2014 Urologist Referral for Histo ry of calculus of kidney Referring Physician: Jj Finley, Internal Medicine, Encounter Date: 05/16/2015 Gum Sprayer/dietitian Refer ral for Body mass index 25-29 - overweight Referring Physician: Jj Finley Internal Medicine, Encounter Date: 06/05/2016 Referring Physician: Jj benavidez Internal Medicine, Encounter Date: 06/05/2016 Results Created Date Observation Date Name Description Value Unit Range Abnormal Flag Note LastModifiedBy Organization Detail LastModifiedTime 04/13/20 14 04/13/2014 CBC w/ auto diff WBC 6.8 K/mm3 (4.0-1 1.0) Not Available [facility] [address], [place], [address], 04/13/2014 10:48:08 04/13/20 14 04/13/2014 CBC w/ auto diff RBC 5.18 M/mm3 (4.70- 6.10) Not Available [facility] [address] [place], [address], 04/13/2014 10:48:08 04/13/20 14 04/13/2014 CBC w/ auto diff HGB 16.8 gm/dL (14.0- 18.0) Not Available [facility] [address] [place], [address], 04/13/2014 10:48:08 04/13/20 14 04/13/2014 CBC w/ auto diff HCT 50.4 % (42.0- 52.0) Not Available [facility] [address] [place], [address], 04/13/2014 10:48:08 04/13/20 14 04/13/2014 CBC w/ auto diff MCV 97.3 fL (80.0- 94.0) high Not Available [facility] [address] [place], [address], 04/13/2014 10:48:08 04/13/20 14 04/13/2014 CBC w/ auto diff MCH 32.4 pg (27.0- 34.0) Not Available [facility] [address] [place], [address], 04/13/2014 10:48:08 04/13/20 14 04/13/2014 CBC w/ auto diff MCHC 33.3 % (33.0- 37.0) Not Available [facility] [address] [place], [address], 04/13/2014 10:48:08 04/13/20 14 04/13/2014 CBC w/ auto diff plt 279 K/mm3 (150-4 60) Not Available [facility] [address] [place], [address], 04/13/2014 10:48:08 04/13/20 14 04/13/2014 CBC w/ auto diff RDW-SD 50.7 fL (<47.0 ) high Not Available [facility] [address] [place], [address], 04/13/2014 10:48:08 04/13/20 14 04/13/2014 CBC w/ auto diff MPV 9.1 fL (9.4-1 2.4) low Not Available [facility] [address] [place], [address], 04/13/2014 10:48:08 04/13/20 14 04/13/2014 CBC w/ auto diff automated NRBC 0.0 #/100 _WBC' s Not Available [facility] [address] [place], [address], 04/13/2014 10:48:08 04/13/20 14 04/13/2014 CBC w/ auto diff abs. NRBC 0.0 K/mm3 Not Available [facility] [address] [place], [address], 04/13/2014 10:48:08 04/13/20 14 04/13/2014 CBC w/ auto diff neut # 3.9 K/mm3 (1.3-7 .0) Not Available [facility] [address] [place], [address], 04/13/2014 10:48:08 04/13/20 14 04/13/2014 CBC w/ auto diff lymph # 2.1 K/mm3 (0.8-3 .1) Not Available [facility] [address] [place], [address], 04/13/2014 10:48:08 04/13/20 14 04/13/2014 CBC w/ auto diff mono# 0.7 K/mm3 (0.4-1 .3) Not Available [facility] [address] [place], [address], 04/13/2014 10:48:08 04/13/20 14 04/13/2014 CBC w/ auto diff eo # 0.1 K/mm3 (0.0-0 .4) Not Available [facility] [address] [place], [address], 04/13/2014 10:48:08 04/13/20 14 04/13/2014 CBC w/ auto diff baso # 0.1 K/mm3 (0.0-0 .1) Not Available [facility] [address] [place], [address], 04/13/2014 10:48:08 04/13/20 14 04/13/2014 CBC w/ auto diff abs. imm gran 0.0 K/mm3 Not Available [facility] [address] [place], [address], 04/13/2014 10:48:08 04/13/20 14 04/13/2014 CBC w/ auto diff neut 56.9 % (44-76 ) Not Available [facility] [address] [place], [address], 04/13/2014 10:48:08 04/13/20 14 04/13/2014 CBC w/ auto diff lymph 30.2 % (15-43 ) Not Available [facility] [address] [place], [address], 04/13/2014 10:48:08 04/13/20 14 04/13/2014 CBC w/ auto diff monocyte 10.3 % (4.5-1 0.5) Not Available [facility] [address] [place], [address], 04/13/2014 10:48:08 04/13/20 14 04/13/2014 CBC w/ auto diff eo 1.2 % (0-6) Not Available [facility] [address] [place], [address], 04/13/2014 10:48:08 04/13/20 14 04/13/2014 CBC w/ auto diff baso 1.0 % (0-2) Not Available [facility] [address] [place], [address], 04/13/2014 10:48:08 04/13/20 14 04/13/2014 CBC w/ auto diff imm gran 0.4 % (0.0-0 .6) Not Available [facility] [address] [place], [address], 04/13/2014 10:48:08 04/13/20 14 04/13/2014 urina lysis , compl ete appear/color LIGHT YELLO W CLEAR Not Available [facility] [address] [place], [address], 04/13/2014 10:50:12 04/13/20 14 04/13/2014 urina lysis , compl ete sp. gravity 1.017 (1.002 -1.030 ) Not Available [facility] [address] [place], [address], 04/13/2014 10:50:12 04/13/20 14 04/13/2014 urina lysis , compl ete urine pH 6.0 (4.0-8 .0) Not Available [facility] [address] [place], [address], 04/13/2014 10:50:12 04/13/20 14 04/13/2014 urina lysis , compl ete urine albumin NEGATI VE (neg) Not Available [facility] [address] [place], [address], 04/13/2014 10:50:12 04/13/20 14 04/13/2014 urina lysis , compl ete urine glucose NEGATI VE (neg) Not Available [facility] [address] [place], [address], 04/13/2014 10:50:12 04/13/20 14 04/13/2014 urina lysis , compl ete urine ketones NEGATI VE (neg) Not Available [facility] [address] [place], [address], 04/13/2014 10:50:12 04/13/20 14 04/13/2014 urina lysis , compl ete urine bilirubin NEGATI VE (neg) Not Available [facility] [address] [place], [address], 04/13/2014 10:50:12 04/13/20 14 04/13/2014 urina lysis , compl ete urine hemoglobn NEGATI VE (neg) Not Available [facility] [address] [place], [address], 04/13/2014 10:50:12 04/13/20 14 04/13/2014 urina lysis , compl ete urine nitrite NEGATI VE (neg) Not Available [facility] [address] [place], [address], 04/13/2014 10:50:12 04/13/20 14 04/13/2014 urina lysis , compl ete urine leukocyte NEGATI VE (neg) Not Available [facility] [address] [place], [address], 04/13/2014 10:50:12 04/13/20 14 04/13/2014 urina lysis , compl ete urobilinogen NORMAL mg/dL (norm) Not Available [facility] [address] [place], [address], 04/13/2014 10:50:12 04/13/20 14 04/13/2014 urina lysis , compl ete urine WBC's 1 /hpf (0-5) Not Available [facility] [address] [place], [address], 04/13/2014 10:50:12 04/13/20 14 04/13/2014 urina lysis , compl ete urine RBC's 1 /hpf (<3) Not Available [facility] [address] [place], [address], 04/13/2014 10:50:12 04/13/20 14 04/13/2014 urina lysis , compl ete mucus SLIGHT /lpf Not Available [facility] [address] [place], [address], 04/13/2014 10:50:12 04/13/20 14 04/13/2014 PSA, serum or plasm a PSA 3.3 NG/mL (0-4) TEST PERFO RMED USING THE JOHNATHAN ELECT JOHNATHAN MILLU MINES CENCE TOTAL PSA ASSAY . PSA VALUE S OBTAI DIANA WITH OTHER ASSAY METHO DS OR KITS CANNO T BE USED INTER GODOY EABLY . Not Available [facility] [address] [place], [address], 04/13/2014 11:18:12 04/13/20 14 04/13/2014 BMP, serum or plasm a glucose 111 mg/dL (70-99 ) high Not Available [facility] [address] [place], [address], 04/13/2014 11:29:08 04/13/20 14 04/13/2014 BMP, serum or plasm a BUN 16 mg/dL (8-23) Not Available [facility] [address] [place], [address], 04/13/2014 11:29:08 04/13/20 14 04/13/2014 BMP, serum or plasm a creatinine 0.9 mg/dL (0.7-1 .2) Not Available [facility] [address] [place], [address], 04/13/2014 11:29:08 04/13/20 14 04/13/2014 BMP, serum or plasm a sodium 141 mmol/ L (133-1 45) Not Available [facility] [address] [place], [address], 04/13/2014 11:29:08 04/13/20 14 04/13/2014 BMP, serum or plasm a potassium 4.2 mmol/ L (3.6-5 .2) Not Available [facility] [address] [place], [address], 04/13/2014 11:29:08 04/13/20 14 04/13/2014 BMP, serum or plasm a chloride 99 mmol/ L (98-10 7) Not Available [facility] [address] [place], [address], 04/13/2014 11:29:08 04/13/20 14 04/13/2014 BMP, serum or plasm a bicarbonate 31 mmol/ L (22-29 ) high Not Available [facility] [address] [place], [address], 04/13/2014 11:29:08 04/13/20 14 04/13/2014 BMP, serum or plasm a anion gap 11 (4-17) Not Available [facility] [address] [place], [address], 04/13/2014 11:29:08 04/13/20 14 04/13/2014 BMP, serum or plasm a calcium 10.2 mg/dL (8.6-1 0.5) Not Available [facility] [address] [place], [address], 04/13/2014 11:29:08 04/13/20 14 04/13/2014 BMP, serum or plasm a est GFR non >60 mL/mi n/1.7 3_M2 THE MDRD STUDY 'S ESTIM ATED GFR EQUAT ION HAS NOT BEEN VALID ATED IN CHILD TERRA (<18 YRS), PREGN ANT WOMEN , THE ELDER LY (AGE >70 YRS), RACIA L OR ETHNI C SUBGR OUPS OTHER THAN CAUCA SIANS AND AFRIC AN AMERI CANS. Not Available [facility] [address] [place], [address], 04/13/2014 11:29:08 04/13/20 14 04/13/2014 BMP, serum or plasm a est GFR >60 mL/mi n/1.7 3_M2 THE MDRD STUDY 'S ESTIM ATED GFR EQUAT ION HAS NOT BEEN VALID ATED IN CHILD TERRA (<18 YRS), PREGN ANT WOMEN , THE ELDER LY (AGE >70 YRS), RACIA L OR ETHNI C SUBGR OUPS OTHER THAN CAUCA SIANS AND AFRIC AN AMERI CANS. Not Available [facility] [address] [place], [address], 04/13/2014 11:29:08 04/13/20 14 04/13/2014 ALT (mendoza ine amino trans feras e), serum or plasm a ALT 22 U/L (0-41) Not Available [facility] [address] [place], [address], 04/13/2014 11:29:09 04/13/20 14 04/13/2014 lipid panel , serum cholesterol, total 248 mg/dL (<200) high Not Available [facility] [address] [place], [address], 04/13/2014 11:29:10 04/13/20 14 04/13/2014 lipid panel , serum triglyceride 128 mg/dL (<150) Not Available [facility] [address] [place], [address], 04/13/2014 11:29:10 04/13/20 14 04/13/2014 lipid panel , serum HDL chol 60 mg/dL (>39) Not Available [facility] [address] [place], [address], 04/13/2014 11:29:10 04/13/20 14 04/13/2014 lipid panel , serum LDL cholesterol, calculated 162 mg/dL (0-130 ) high Not Available [facility] [address] [place], [address], 04/13/2014 11:29:10 04/13/20 14 04/13/2014 lipid panel , serum non HDL cholesterol (calc) 188 mg/dL (<160) high Not Available [facility] [address] [place], [address], 04/13/2014 11:29:10 04/13/20 14 04/13/2014 CK (crea yared kinas e), total , serum CK (creatine kinase) 108 U/L (0-310 ) Not Available [facility] [address] [place], [address], 04/13/2014 11:29:11 04/13/20 14 04/13/2014 CRP, high sensi tivit y, serum or plasm a cardio CRP 0.69 mg/L hsCRP (MG/L ) RELAT WHITNEY RISK FOR CARDI AC DISEA SE <1.0 LOW 1.0-3 .0 AVERA GE >3.0 HIGH INDIV IDUAL S WITH EVIDE NCE OF ACTIV E INFEC TION, SYSTE MANINDER INFLA MMATO RY PROCE SSES OR TRAUM A SHOUL D NOT BE TESTE D FOR 2 TO 4 WEEKS UNTIL THESE CONDI TIONS HAVE ERICKA D. ANDRES ON, TA, CIRCU LATIO N. 2003, 107:4 99-51 1 VARIA BLE RESUL TS MAY OCCUR IN PATIE NTS WHO HAVE DIAGN OSTIC TESTS /THER APY USING MOUSE MONOC LONAL ANTIB ODIES . [place] LAB [place] EXT [address] . Not Available [facility] [address], [place], [address], 04/13/2014 11:29:12 04/13/20 14 04/13/2014 ESR (eryt hrocy te sedim entat ion rate) , blood sedimentatio n rate 3 mm/HR (0-15) In rare patie nts with multi ple myelo ma and other cance rs,Er ythro cyte Sedim entat ion Rate( ESR) by our curre nt metho d(iSE D)can be shahrzad l. If clini joss relev ant,p lease use C-maximiliano ctive prote in as an equiv alent measu re of acute phase react ion in these patie nts. Not Available [facility] [address], [place], [address], 04/13/2014 11:32:22 04/13/20 14 04/13/2014 CK-mb , blood CKMB confirmation /quant 2.7 NG/mL (0-6) Not Available [facility] [address], [place], [address], 04/13/2014 13:32:19 04/13/20 14 04/14/2014 lyme disea se Ab, total , serum lyme Ab NEGAT WHITNEY NO ANTIB ADAMS TO BORRE LLIA BURGD ORFER I DETEC SAEID. PATIE NTS IN EARLY STAGE S OF INFEC TION OR WHO WERE GIVEN EARLY ANTIB IOTIC TREAT MENT MAY NOT PRODU CE DETEC TABLE LEVEL S OF ANTIB ADAMS. THESE PATIE NTS WOULD BENEF IT FROM REPEA Alva SORENSEN NG IN 2 TO 4 WEEKS . REFER ENCE RANGE : NEGAT WHITNEY Not Available [facility] [address] [place], [address], 04/14/2014 10:41:06 04/13/20 14 04/15/2014 vitam in D, 25-hy droxy , total , serum 25OH vitamin D 28.2 NG/mL (20-50 ) SERUM 25OHD : 20 TO 50 NG/ML : SUFFI CIENT IN VITAM IN D. Refer ence: [facility] Data Brief : No.59 August: Vitam in D Statu s: Unite d State s: 2000- 2005 Not Available [facility] [address] [place], [address], 04/15/2014 15:41:18 05/11/20 15 05/11/2015 CBC w/ auto diff comments [facility] [address] [facility] [place] [address] [phone] Not Available [facility] [address] [place], [address], 05/11/2015 08:58:14 05/11/20 15 05/11/2015 CBC w/ auto diff WBC 7.5 x10-3 4.8-10 .8 Not Available [facility] [address] [place], [address], 05/11/2015 08:58:14 05/11/20 15 05/11/2015 CBC w/ auto diff RBC 5.1 x10-6 4.5-5. 5 Not Available [facility] [address] [place], [address], 05/11/2015 08:58:14 05/11/20 15 05/11/2015 CBC w/ auto diff hemoglobin 16.6 g/dL 13.5-1 7.5 Not Available [facility] [address] [place], [address], 05/11/2015 08:58:14 05/11/20 15 05/11/2015 CBC w/ auto diff hematocrit 48.2 % 42-54 Not Available [facility] [address] [place], [address], 05/11/2015 08:58:14 05/11/20 15 05/11/2015 CBC w/ auto diff MCV 94.1 fL 79-98 Not Available [facility] [address] [place], [address], 05/11/2015 08:58:14 05/11/20 15 05/11/2015 CBC w/ auto diff MCH 32.4 pg 27-32 high Not Available [facility] [address] [place], [address], 05/11/2015 08:58:14 05/11/20 15 05/11/2015 CBC w/ auto diff MCHC 34.4 g/dL 32-37 Not Available [facility] [address] [place], [address], 05/11/2015 08:58:14 05/11/20 15 05/11/2015 CBC w/ auto diff RDW 14.0 % 11-15 Not Available [facility] [address] [place], [address], 05/11/2015 08:58:14 05/11/20 15 05/11/2015 CBC w/ auto diff plt count 277 x10-3 130-40 0 Not Available [facility] [address] [place], [address], 05/11/2015 08:58:14 05/11/20 15 05/11/2015 CBC w/ auto diff mean platelet volume 9.4 fL 7-11 Not Available [facility] [address] [place], [address], 05/11/2015 08:58:14 05/11/20 15 05/11/2015 CBC w/ auto diff neut % 57 % 41-85 Not Available [facility] [address] [place], [address], 05/11/2015 08:58:14 05/11/20 15 05/11/2015 CBC w/ auto diff lymph % 31 % 15-48 Not Available [facility] [address] [place], [address], 05/11/2015 08:58:14 05/11/20 15 05/11/2015 CBC w/ auto diff mono % 10 % 0-12 Not Available [facility] [address] [place] [address], [address], 05/11/2015 08:58:14 05/11/20 15 05/11/2015 CBC w/ auto diff eos % 1 % 0-5 Not Available [facility] [address] [place] [address], [address], 05/11/2015 08:58:14 05/11/20 15 05/11/2015 CBC w/ auto diff baso % 0 % 0-2 Not Available [facility] [address] [place] [address], [address], 05/11/2015 08:58:14 05/11/20 15 05/11/2015 CBC w/ auto diff absolute neut 4.2 X10-3 /uL >1.5 Not Available [facility] [address] [place] [address], [address], 05/11/2015 08:58:14 05/11/20 15 05/11/2015 CMP, serum or plasm a comments [facility] [address] [place] [address] [facility] [place] [address] [phone] Not Available [facility] [address] [place] [address], [address], 05/11/2015 09:32:58 05/11/20 15 05/11/2015 CMP, serum or plasm a glucose 95 mg/dL 70-100 Refer ence range appli cable to fasti ng speci mens only Not Available [facility] [address] [place], [address], 05/11/2015 09:32:58 05/11/20 15 05/11/2015 CMP, serum or plasm a BUN 17 mg/dL 5-25 Not Available [facility] [address] [place] [address], [address], 05/11/2015 09:32:58 05/11/20 15 05/11/2015 CMP, serum or plasm a creat 0.92 mg/dL 0.7-1. 3 Not Available [facility] [address] [place], [address], 05/11/2015 09:32:58 05/11/20 15 05/11/2015 CMP, serum or plasm a glomerular filtration rate > 60 If patie nt is Afric an-Am mayra n, multi ply resul t by 1.21 Chron ic Kidne y Disea se: < 60 ml/mi n/1.7 3 squar e meter s Kidne y Failu re: < 15 ml/mi n/1.7 3 squar e meter s Not Available [facility] [address] [place], [address], 05/11/2015 09:32:58 05/11/20 15 05/11/2015 CMP, serum or plasm a sodium 141 mEq/L 133-14 5 Not Available [facility] [address] [place] [address], [address], 05/11/2015 09:32:58 05/11/20 15 05/11/2015 CMP, serum or plasm a potassium 4.3 mEq/L 3.5-5. 5 Not Available [facility] [address] [place], [address], 05/11/2015 09:32:58 05/11/20 15 05/11/2015 CMP, serum or plasm a chloride 101 mEq/L 96-110 Not Available [facility] [address] [place], [address], 05/11/2015 09:32:58 05/11/20 15 05/11/2015 CMP, serum or plasm a CO2 34 mEq/L 21-32 high Not Available [facility] [address] [place], [address], 05/11/2015 09:32:58 05/11/20 15 05/11/2015 CMP, serum or plasm a anion gap 6 3-11 Not Available [facility] [address] [place], [address], 05/11/2015 09:32:58 05/11/20 15 05/11/2015 CMP, serum or plasm a calcium 9.8 mg/dL 8.5-10 .5 Not Available [facility] [address] [place] [address], [address], 05/11/2015 09:32:58 05/11/20 15 05/11/2015 CMP, serum or plasm a total protein 7.0 g/dL 6.0-8. 0 Not Available [facility] [address] [place] [address], [address], 05/11/2015 09:32:58 05/11/20 15 05/11/2015 CMP, serum or plasm a albumin 4.4 g/dL 3.2-5. 0 Not Available [facility] [address] [place] [address], [address], 05/11/2015 09:32:58 05/11/20 15 05/11/2015 CMP, serum or plasm a bili,total 1.4 mg/dL 0.0-1. 4 Not Available [facility] [address] [place] [address], [address], 05/11/2015 09:32:58 05/11/20 15 05/11/2015 CMP, serum or plasm a SGOT 26 U/L 10-42 Not Available [facility] [address] [place] [address], [address], 05/11/2015 09:32:58 05/11/20 15 05/11/2015 CMP, serum or plasm a SGPT 21 U/L 10-60 Not Available [facility] [address] [place] [address], [address], 05/11/2015 09:32:58 05/11/20 15 05/11/2015 CMP, serum or plasm a alk phos 66 U/L 42-121 Not Available [facility] [address] [place] [address], [address], 05/11/2015 09:32:58 05/11/20 15 05/11/2015 lipid panel , serum comments [facility] [address] [place] [address] [place] [address] [phone] Not Available [facility] [address] [place], [address], 05/11/2015 09:33:01 05/11/20 15 05/11/2015 lipid panel , serum cholesterol 229 mg/dL 0-200 high Not Available [facility] [address] [place], [address], 05/11/2015 09:33:01 05/11/20 15 05/11/2015 lipid panel , serum triglyceride s 111 mg/dL 0-150 Not Available [facility] [address] [place], [address], 05/11/2015 09:33:01 05/11/20 15 05/11/2015 lipid panel , serum HDL cholesterol 55 mg/dL >40 Not Available [facility] [address] [place] [address], [address], 05/11/2015 09:33:01 05/11/20 15 05/11/2015 lipid panel , serum LDL calculated 152 mg/dL 0-100 high Not Available [facility] [address] [place] [address], [address], 05/11/2015 09:33:01 05/11/20 15 05/11/2015 lipid panel , serum TC-HDLC ratio 4.2 mg/dL 0-4.4 Not Available [facility] [address] [place] [address], [address], 05/11/2015 09:33:01 05/11/20 15 05/11/2015 cardi o CRP- high sensi tive comments [facility] [address] [facility] [place] [address] [phone] Not Available [facility] [address] [place] [address], [address], 05/11/2015 09:24:49 05/11/20 15 05/11/2015 cardi o CRP- high sensi tive cardio CRP- high sensitive 0.3 mg/L Cardi o CRP Relat whitney Risk Categ ories Low <1.0 mg/L [place] ge 1.0 - 3.0 mg/L High >3.0 mg/L Level s >10.0 shoul d be ignor ed and repea saeid when the patie nt is stabl e and infec tion or infla mmati on is ruled out. Not Available [facility] [address] [place], [address], 05/11/2015 09:24:49 05/11/20 15 05/11/2015 cardi o CRP- high sensi tive comments [facility] [address] [facility] [place] [address] [phone] Not Available [facility] [address] [place], [address], 05/11/2015 09:33:03 05/11/20 15 05/11/2015 cardi o CRP- high sensi tive cardio CRP- high sensitive 0.3 mg/L Cardi o CRP Relat whitney Risk Categ ories Low <1.0 mg/L [place] ge 1.0 - 3.0 mg/L High >3.0 mg/L Level s >10.0 shoul d be ignor ed and repea saeid when the patie nt is stabl e and infec tion or infla mmati on is ruled out. Not Available [facility] [address] [place], [address], 05/11/2015 09:33:03 05/11/20 15 05/11/2015 prost atic speci fic antig en scr comments [facility] [address] [facility] Jenny bowen [place], [place] [address] [phone] Not Available [facility] [address] [place], [address], 05/11/2015 09:33:04 05/11/20 15 05/11/2015 prost atic speci fic antig en scr prostatic specific antigen scr 2.2 NG/mL 0.0-4. 0 Not Available [facility] [address] [place], [address], 05/11/2015 09:33:04 05/11/20 15 05/11/2015 TSH, serum or plasm a comments [facility] [address] [facility] [place] [address] [phone] Not Available [facility] [address] [place], [address], 05/11/2015 09:33:05 05/11/20 15 05/11/2015 TSH, serum or plasm a TSH 1.40 uIU/m L 0.40-4 .00 Not Available [facility] [address] [place], [address], 05/11/2015 09:33:05 05/11/20 15 05/11/2015 vitam in D, 25-hy droxy , total , serum comments [facility] [address] [place] [address] [phone] Not Available [facility] [address] [place] [address], [address], 05/11/2015 10:38:38 05/11/20 15 05/11/2015 vitam in D, 25-hy droxy , total , serum vitamin D, 25-hydroxy 25 NG/mL 30-80 low Vitam in D Refer ence Range s Defic iency : <20 ng/mL Insuf ficie ncy: 20-29 ng/mL Optim al: 30-80 ng/mL High: >80 ng/mL Not Available [facility] [address] [place] [address], [address], 05/11/2015 10:38:38 10/26/19 16 10/26/2015 lipid panel , serum comments [facility] [address] [facility] [place] [address] [phone] Not Available [facility] [address] [place], [address], 10/26/2015 09:31:28 10/26/19 16 10/26/2015 lipid panel , serum cholesterol 131 mg/dL 0-200 Not Available [facility] [address] [place], [address], 10/26/2015 09:31:28 10/26/19 16 10/26/2015 lipid panel , serum triglyceride s 79 mg/dL 0-150 Not Available [facility] [address] [place], [address], 10/26/2015 09:31:28 10/26/19 16 10/26/2015 lipid panel , serum HDL cholesterol 48 mg/dL >40 Not Available [facility] [address] [place] [address], [address], 10/26/2015 09:31:28 10/26/19 16 10/26/2015 lipid panel , serum LDL calculated 68 mg/dL 0-100 Not Available [facility] [address] [place] [address], [address], 10/26/2015 09:31:28 10/26/19 16 10/26/2015 lipid panel , serum TC-HDLC ratio 2.7 mg/dL 0-4.4 Not Available [facility] [address] [place] [address], [address], 10/26/2015 09:31:28 10/26/19 16 10/26/2015 ALT (mendoza ine amino trans feras e), serum or plasm a comments [facility] [address] [facility] [place] [address] [phone] Not Available [facility] [address] [place] [address], [address], 10/26/2015 09:31:32 10/26/19 16 10/26/2015 ALT (mendoza ine amino trans feras e), serum or plasm a SGPT 37 U/L 10-60 Not Available [facility] [address] [place] [address], [address], 10/26/2015 09:31:32 10/26/19 16 10/26/2015 CK (crea yared kinas e), total , serum comments [facility] [address] [facility] [place] [address] [phone] Not Available [facility] [address] [place] [address], [address], 10/26/2015 09:31:34 10/26/19 16 10/26/2015 CK (crea yared kinas e), total , serum creatine kinase (CK) 211 U/L 22-269 Not Available [facility] [address] [facility], [place], [address], 10/26/2015 09:31:34 06/01/20 16 06/01/2016 CBC w/ auto diff WBC 4.9 K/mm3 (4.0-1 1.0) Not Available [facility] [address] [place], [address], 06/01/2016 14:16:35 06/01/20 16 06/01/2016 CBC w/ auto diff RBC 5.01 M/mm3 (4.70- 6.10) Not Available [facility] [address] [place], [address], 06/01/2016 14:16:35 06/01/20 16 06/01/2016 CBC w/ auto diff HGB 15.8 gm/dL (14.0- 18.0) Not Available [facility] [address] [place], [address], 06/01/2016 14:16:35 06/01/20 16 06/01/2016 CBC w/ auto diff HCT 48.8 % (42.0- 52.0) Not Available [facility] [address] [place], [address], 06/01/2016 14:16:35 06/01/20 16 06/01/2016 CBC w/ auto diff MCV 97.4 fL (80.0- 94.0) high Not Available [facility] [address] [place], [address], 06/01/2016 14:16:35 06/01/20 16 06/01/2016 CBC w/ auto diff MCH 31.5 pg (27.0- 34.0) Not Available [facility] [address] [place], [address], 06/01/2016 14:16:35 06/01/20 16 06/01/2016 CBC w/ auto diff MCHC 32.4 g/dL (33.0- 37.0) low Not Available [facility] [address] [place], [address], 06/01/2016 14:16:35 06/01/20 16 06/01/2016 CBC w/ auto diff plt 250 K/mm3 (150-4 60) Not Available [facility] [address] [place], [address], 06/01/2016 14:16:35 06/01/20 16 06/01/2016 CBC w/ auto diff RDW-SD 51.4 fL (<47.0 ) high Not Available [facility] [address] [place], [address], 06/01/2016 14:16:35 06/01/20 16 06/01/2016 CBC w/ auto diff MPV 9.6 fL (9.4-1 2.4) Not Available [facility] [address] [place], [address], 06/01/2016 14:16:35 06/01/20 16 06/01/2016 CBC w/ auto diff automated NRBC 0.0 #/100 _WBC' s Not Available [facility] [address] [place], [address], 06/01/2016 14:16:35 06/01/20 16 06/01/2016 CBC w/ auto diff abs. NRBC 0.0 K/mm3 Not Available [facility] [address] [place], [address], 06/01/2016 14:16:35 06/01/20 16 06/01/2016 CBC w/ auto diff neut # 1.9 K/mm3 (1.3-7 .0) Not Available [facility] [address] [place], [address], 06/01/2016 14:16:35 06/01/20 16 06/01/2016 CBC w/ auto diff lymph # 1.9 K/mm3 (0.8-3 .1) Not Available [facility] [address] [place], [address], 06/01/2016 14:16:35 06/01/20 16 06/01/2016 CBC w/ auto diff mono# 1.0 K/mm3 (0.4-1 .3) Not Available [facility] [address] [place], [address], 06/01/2016 14:16:35 06/01/20 16 06/01/2016 CBC w/ auto diff eo # 0.1 K/mm3 (0.0-0 .4) Not Available [facility] [address] [place], [address], 06/01/2016 14:16:35 06/01/20 16 06/01/2016 CBC w/ auto diff baso # 0.0 K/mm3 (0.0-0 .1) Not Available [facility] [address] [place], [address], 06/01/2016 14:16:35 06/01/20 16 06/01/2016 CBC w/ auto diff abs. imm gran 0.0 K/mm3 Not Available [facility] [address] [place], [address], 06/01/2016 14:16:35 06/01/20 16 06/01/2016 CBC w/ auto diff neut 38.4 % (44-76 ) low Not Available [facility] [address] [place], [address], 06/01/2016 14:16:35 06/01/20 16 06/01/2016 CBC w/ auto diff lymph 38.3 % (15-43 ) Not Available [facility] [address] [place], [address], 06/01/2016 14:16:35 06/01/20 16 06/01/2016 CBC w/ auto diff monocyte 19.5 % (4.5-1 0.5) high Not Available [facility] [address] [place], [address], 06/01/2016 14:16:35 06/01/20 16 06/01/2016 CBC w/ auto diff eo 2.8 % (0-6) Not Available [facility] [address] [place], [address], 06/01/2016 14:16:35 06/01/20 16 06/01/2016 CBC w/ auto diff baso 0.6 % (0-2) Not Available [facility] [address] [place], [address], 06/01/2016 14:16:35 06/01/20 16 06/01/2016 CBC w/ auto diff imm gran 0.4 % (0.0-0 .6) Not Available [facility] [address] [place], [address], 06/01/2016 14:16:35 06/01/20 16 06/01/2016 ALT (mendoza ine amino trans feras e), serum or plasm a ALT 35 U/L (0-41) Not Available [facility] [address] [place], [address], 06/01/2016 15:42:56 06/01/20 16 06/01/2016 BMP, serum or plasm a glucose 83 mg/dL (70-99 ) Not Available [facility] [address] [place], [address], 06/01/2016 15:42:57 06/01/20 16 06/01/2016 BMP, serum or plasm a BUN 14 mg/dL (8-23) Not Available [facility] [address] [place], [address], 06/01/2016 15:42:57 06/01/20 16 06/01/2016 BMP, serum or plasm a creatinine 1.0 mg/dL (0.7-1 .2) Not Available [facility] [address] [place], [address], 06/01/2016 15:42:57 06/01/20 16 06/01/2016 BMP, serum or plasm a sodium 141 mmol/ L (133-1 45) Not Available [facility] [address] [place], [address], 06/01/2016 15:42:57 06/01/20 16 06/01/2016 BMP, serum or plasm a potassium 4.2 mmol/ L (3.6-5 .2) Not Available [facility] [address] [place], [address], 06/01/2016 15:42:57 06/01/20 16 06/01/2016 BMP, serum or plasm a chloride 100 mmol/ L (98-10 7) Not Available [facility] [address] [place], [address], 06/01/2016 15:42:57 06/01/20 16 06/01/2016 BMP, serum or plasm a bicarbonate 28 mmol/ L (22-29 ) Not Available [facility] [address] [place], [address], 06/01/2016 15:42:57 06/01/20 16 06/01/2016 BMP, serum or plasm a anion gap 13 (4-17) Not Available [facility] [address] [place], [address], 06/01/2016 15:42:57 06/01/20 16 06/01/2016 BMP, serum or plasm a calcium 8.7 mg/dL (8.6-1 0.5) Not Available [facility] [address] [place], [address], 06/01/2016 15:42:57 06/01/20 16 06/01/2016 BMP, serum or plasm a est GFR non 76 mL/mi n/1.7 3_M2 The CKD-E PI creat inine equat ion has not been valid ated in child terra (<18 years ), pregn ant women , in some racia l or ethni c subgr oups other than Cauca sians and Afric an Ameri cans. Not Available [facility] [address] [place], [address], 06/01/2016 15:42:57 06/01/20 16 06/01/2016 BMP, serum or plasm a est GFR 88 mL/mi n/1.7 3_M2 The CKD-E PI creat inine equat ion has not been valid ated in child terra (<18 years ), pregn ant women , in some racia l or ethni c subgr oups other than Cauca sians and Afric an Ameri cans. Not Available [facility] [address] [place], [address], 06/01/2016 15:42:57 06/01/20 16 06/01/2016 CRP, high sensi tivit y, serum or plasm a cardio CRP 12.06 mg/L (0-3) high hsCRP (MG/L ) RELAT WHITNEY RISK FOR CARDI AC DISEA SE <1.0 LOW 1.0-3 .0 AVERA GE >3.0 HIGH INDIV IDUAL S WITH EVIDE NCE OF ACTIV E INFEC TION, SYSTE MANINDER INFLA MMATO RY PROCE SSES OR TRAUM A SHOUL D NOT BE TESTE D FOR 2 TO 4 WEEKS UNTIL THESE CONDI TIONS HAVE ERICKA D. PEAREdith ON, TA, CIRCU LATIO N. 2003, 107:4 99-51 1 VARIA BLE RESUL TS MAY OCCUR IN PATIE NTS WHO HAVE DIAGN OSTIC TESTS /THER APY USING MOUSE MONOC LONAL ANTIB ODIES . [place] EXT [id number] . Not Available [facility] [address], [place], [address], 06/01/2016 15:42:58 06/01/20 16 06/01/2016 lipid panel , serum cholesterol, total 106 mg/dL (<200) Not Available [facility] [address] [place], [address], 06/01/2016 15:42:59 06/01/20 16 06/01/2016 lipid panel , serum triglyceride 77 mg/dL (<150) Not Available [facility] [address] [place], [address], 06/01/2016 15:42:59 06/01/20 16 06/01/2016 lipid panel , serum HDL chol 51 mg/dL (>39) Not Available [facility] [address] [place], [address], 06/01/2016 15:42:59 06/01/20 16 06/01/2016 lipid panel , serum LDL cholesterol, calculated 40 mg/dL (0-130 ) Not Available [facility] [address] [place], [address], 06/01/2016 15:42:59 06/01/20 16 06/01/2016 lipid panel , serum non HDL cholesterol (calc) 55 mg/dL (<160) Not Available [facility] [address] [place], [address], 06/01/2016 15:42:59 06/01/20 16 06/01/2016 PSA, serum or plasm a PSA 3.5 NG/mL (0-4) TEST PERFO RMED USING THE [email or web address] CENCE TOTAL PSA ASSAY . PSA VALUE S OBTAI DIANA WITH OTHER ASSAY METHO DS OR KITS CANNO T BE USED INTER GODOY EABLY . Not Available [facility] [address] [place], [address], 06/01/2016 15:44:50 06/01/20 16 06/01/2016 TSH, serum or plasm a TSH 2.08 mIU/m L (0.40- 4.00) Not Available [facility] [address] [place], [address], 06/01/2016 15:44:51 06/01/20 16 06/02/2016 vitam in D, 25-hy droxy , total , serum 25OH vitamin D 31.4 NG/mL (20-50 ) SERUM 25OHD : 20 TO 50 NG/ML : SUFFI CIENT IN VITAM IN D. Refer ence: [facility] Data Brief : No.59 August: Vitam in D Statu s: Unite d State s: 2000- 2005 Not Available [facility] [address] [place], [address], 06/02/2016 02:12:25 04/19/20 14 12/09/2011 chest 2 views front al and lat EXAM: Chest 2 views HISTOR Y: Conges tion COMPAR SURJIT: There are no prior studie s for compar surjit. FINDIN GS: Cardio medias tinal silhou ette is unrema rkable for age. The lungs are clear. No infilt rates or effusi ons. Mild degene rative change s in the thorac ic spine. IMPRES CHARLI: No acute pulmon magalis abnorm ality. Dictat ed By: Terra Hernandez MD Dictat ed Date/T brian: 1:24 pm Review ed By: Terra Hernandez MD Signed By: Terra Hernandez MD Signed Date/T brian: 1:29 pm Transc ribed By: CAROLYN Transc ribed Date/T brian: 1:29 pm Patien t Class: Outpat ient [facility] [address] [place], [address], 05/16/2015 10:06:00 06/08/19 15 06/08/2014 x-ray , abdom en No observ ation record ed. [facility] [address] [place], [address], 05/16/2015 10:06:00 07/06/19 15 07/06/2014 US, renal No observ ation record ed. [email or web address] [facility] [address] [place], [address], 11/22/2015 08:58:10 01/20/20 16 01/20/2016 US, leona y No observ ation record ed. [facility] [address] [place], [address], 01/20/2016 12:59:08 05/01/20 16 05/05/2004 sleep study , diagn ostic * No observ ation record ed. [email or web address] Not Available 2015 09:01:45 09/11/19 17 09/10/2016 US, leona y No observ ation record ed. [facility] [address] [place], [address], 09/10/2016 12:19:48 10/26/19 18 10/25/2017 US, leona y No observ ation record ed. [facility] [address] [place], [address], 10/25/2017 12:45:37 Result Notes None recorded. Problems Name Problem SNOMED Code Status Onset Date Resolution Date Notes Provider Name and Address Organization Details Recorded Time Patient status finding [id number] Completed 06/05/2016 Lubna damian [place] [facility] 7 10:09:21 Screenin g for malignan t neoplasm of colon Completed 201112/22/2013 RECORDED 04/01/20 12 7:27AM BY DARIEL THOMASATI ON/ADDEN DUM Not Available [facility] 4 14:53:53 Cough [id number] Completed 201112/22/2013 RECORDED 04/01/20 12 7:27AM BY DARIEL THOMASATI ON/ADDEN DUM Not Available [facility] 4 14:53:53 Divertic ulitis of colon 014818970 [facility] [address], [place], [address] , [facility] 4 17:15:58 Divertic ulitis of colon 029165918 Completed 201012/22/2013 RECORDED 10/17/19 11 5:01PM BY JJ FINLEY MD, ANNOTATI ON/ADDEN DUM Not Available [facility] 4 14:53:53 Epiretin al membrane 472661396 Active ERVIN Joseph [address], [place], [address] , [facility] 4 17:15:58 Malaise and fatigue 552657261 Completed 06/05/2016 TOSIN Conroy, [facility] 7 10:09:28 Fever 022465887 Completed 201112/22/2013 RECORDED 04/01/20 12 7:27AM BY BRAYDEN DO I, ANNOTATI ON/ADDEN DUM Not Available [facility] 4 14:53:53 Follow-u p encounte r Completed 201212/22/2013 RECORDED 04/07/20 13 7:50AM BY BRAYDEN DO I, ANNOTATI ON/ADDEN DUM Not Available [facility] 4 14:53:53 Tobacco user [id number] Completed 06/05/2016 Removal Reason: quit TOSIN Conroy, [facility] 7 10:09:53 History of clinical finding in subject [id number] Completed 06/05/2016 TOSIN Con[place], [facility] 7 10:09:39 Adult health examinat ion Completed 201112/22/2013 RECORDED 05/15/20 12 3:49PM BY LUBNA JAUREGUI MA, ANNOTATI ON/ADDEN DUM Not Available [facility] 4 14:53:54 Disorder s of bilirubi n excretio n 097820825 Completed 201212/22/2013 RECORDED 06/29/19 13 1:02AM BY JJ FINLEY MD, ANNOTATI ON/ADDEN DUM Not Available [facility] 4 14:53:54 Hyperlip idemia 31839869 Active Jj Finley MD [address], [place], [address] , [facility] 6 09:31:03 Essentia l hyperten charli 19911237 Active Jj Finley MD [address], [place], [address] , [facility] 5 08:25:39 Kidney stone 18814427 Completed 200812/22/2013 IMPRESSI ON: FOLLOWED BY DR. ABDIEL BAHENA; RECORDED 04/04/20 09 4:09PM BY JJ FINLEY MD, ANNOTATI ON/ADDEN DUM Not Available [facility] 4 14:53:54 Obstruct whitney sleep apnea syndrome 98117424 Active Jj Finley MD [address], [place], [address] , [facility] 5 08:25:39 Osteoart hritis 193802755 Completed 201212/22/2013 RECORDED 06/29/19 13 1:02AM BY JJ FINLEY MD, ANNOTATI ON/ADDEN DUM Not Available [facility] 4 14:53:54 Overweig ht 132950072 Active ERVIN Joseph [address] [facility] [address], [place], [address] , [facility] 4 17:15:58 Palpitat ions 31940052 Completed 200812/22/2013 RECORDED 04/04/20 09 4:10PM BY JJ FINLEY MD, ANNOTATI ON/ADDEN DUM Not Available [facility] 4 14:53:54 Immuniza tion refused Completed 06/05/2016 Lubna damian MA null, [facility] 7 10:09:25 Screenin g procedur e Completed 200812/22/2013 RECORDED 04/04/20 09 4:09PM BY JJ FINLEY MD, ANNOTATI ON/ADDEN DUM Not Available [facility] 4 14:53:54 Influenz a vaccine needed [id number] Completed 201112/22/2013 RECORDED 04/01/20 12 7:31AM BY BRAYDEN DO I, OFFICE VISIT Not Available [facility] 4 14:53:54 Adult health examinat ion Active Jj Finley MD [address] [facility] [address], [place], [address] , [facility] 5 08:25:39 Vitreous augusta tiervin [id number] Completed 201212/22/2013 RECORDED 04/07/20 13 8:21AM BY JJ FINLEY MD, ANNOTATI ON/ADDEN DUM Not Available [facility] 4 14:53:54 Screenin g for malignan t neoplasm of colon Completed 201101/11/2014 RECORDED 04/01/20 12 7:27AM BY BRAYDEN DO I, ANNOTATI ON/ADDEN DUM Not Available [facility] 4 06:54:25 Cough [id number] Completed 201101/11/2014 RECORDED 04/01/20 12 7:27AM BY BRAYDEN DO I, ANNOTATI ON/ADDEN DUM Not Available [facility] 4 06:54:25 Fever [id number] Completed 201101/11/2014 RECORDED 04/01/20 12 7:27AM BY BRAYDEN DO I, ANNOTATI ON/ADDEN DUM Not Available [facility] 4 06:54:25 Follow-u p encounte r Completed 201201/11/2014 RECORDED 04/07/20 13 7:50AM BY BRAYDEN DO I, ANNOTATI ON/ADDEN DUM Not Available [facility] 4 06:54:25 Adult health examinat ion Completed 201101/11/2014 RECORDED 05/15/20 12 3:49PM BY LUBNA JAUREGUI MA, ANNOTATI ON/ADDEN DUM Not Available [facility] 4 06:54:25 Disorder s of bilirubi n excretio n [id number] Completed 201201/11/2014 RECORDED 06/29/19 13 1:02AM BY JJ FINLEY MD, ANNOTATI ON/ADDEN DUM Not Available [facility] 4 06:54:25 Kidney stone 61472058 Completed 200801/11/2014 IMPRESSI ON: FOLLOWED BY DR. ABDIEL BAHENA; RECORDED 04/04/20 09 4:09PM BY JJ FINLEY MD, ANNOTATI ON/ADDEN DUM Not Available [facility] 4 06:54:26 Osteoart hritis 798539755 Completed 201201/11/2014 RECORDED 06/29/19 13 1:02AM BY JJ FINLEY MD, ANNOTATI ON/ADDEN DUM Not Available [facility] 4 06:54:26 Palpitat ions 38721582 Completed 200801/11/2014 RECORDED 04/04/20 09 4:10PM BY JJ FINLEY MD, ANNOTATI ON/ADDEN DUM Not Available [facility] 4 06:54:26 Screenin g procedur e Completed 200801/11/2014 RECORDED 04/04/20 09 4:09PM BY JJ FINLEY MD, ANNOTATI ON/ADDEN DUM Not Available [facility] 4 06:54:26 Influenz a vaccine needed [id number] 06 Completed 201101/11/2014 RECORDED 04/01/20 12 7:31AM BY BRAYDEN DO I, OFFICE VISIT Not Available [facility] 4 06:54:26 Vitreous degenera tion 35980567 Completed 201201/11/2014 RECORDED 04/07/20 13 8:21AM BY JJ FINLEY MD, ANNOTATI ON/ADDEN DUM Not Available [facility] 4 06:54:26 Muscle pain 83173609 Active Jj Finley MD [address] [facility] [address], [place], [address] , [facility] 4 17:58:36 Blood in urine 08871957 Completed 06/05/2016 TOSIN Conroy, [facility] 7 10:09:31 Vitamin D deficien 51725767 Active Jj Finley MD [address] [facility] [address], [place], [address] , [facility] 5 08:25:39 Fatigue 62901460 Completed 06/05/2016 TOSIN Conroy, [facility] 7 10:09:36 Body mass index 30+ - obesity 302280828 Active Jj Finley MD [address] [facility] [address], [place], [address] , [facility] 4 17:58:36 Ex-smoke r 0275212 Active 2016 TOSIN Conroy, [facility] 7 10:10:01 History of calculus of kidney 644181439 Active 2016 Jj Finley MD [address] [facility] [address], [place], [address] , [facility] 7 10:32:58 Problem Notes None recorded. Procedures Surgical History Date Name Laterality Status Provider Name and Address Organization Details Recorded Time 7 Fall Risk Assessment completed Lubna mccann MA [facility] 06/05/2016 10:20:58 7 Mini-Cog Test completed Lubna mccann MA [facility] 06/05/2016 10:22:39 5 Fall Risk Assessment completed Lubna mccann MA [facility] 05/16/2015 09:27:59 5 Mini-Cog Test completed Lubna mccann MA [facility] 05/16/2015 09:29:08 4 Fall Risk Assessment completed Brayden Martinez [facility] 04/13/2014 08:00:03 4 Mini-Cog Test completed Jj Finley MD [address] [address], [place], [address], [facility] 04/13/2014 08:09:42 4 PHQ-9 completed Brayden Martinez [facility] 04/13/2014 08:00:03 201 3 Other completed Lubna mccann MA [facility] 05/16/2015 09:27:24 195 6 Other completed Brayden Durandemiliana [facility] 04/13/2014 08:00:03 Imaging Results Imaging Date Name Status LastModified by Organiz ation Details LastModified Time 12/09/2011 chest 2 views frontal and lat completed [facility] [address] [place], [address], 05/16/2015 10:06:00 06/08/2014 x-ray, abdomen completed [facility] [address] [place] [address], [id number], 05/16/2015 10:06:00 07/06/2014 US, renal [email or web address] [address] [place] [address], [id number], 11/22/2015 08:58:10 01/20/2016 US, kidney completed [facility] [address] [place] [address], [id number], 01/20/2016 12:59:08 05/05/2004 sleep study, diagnostic* completed [email or web address] Information not available 05/02/2016 09:01:45 09/10/2016 US, kidney completed [facility] [address] [place] [address], [id number], 09/10/2016 12:19:48 10/25/2017 US, kidney completed [facility] [address] [place] [address], [id number], 10/25/2017 12:45:37 Procedure Notes None recorded. Medical Equipment None Reported. Allergies Allergen ID Allergen Name Allergen Category Reaction Reaction Severity Criticality Documentation Date Start Date Code Code System Note Provider Name and Address Organization Details Recorded Time 78576 No known allergy (situatio n) Not available Not available Not available Not available 12/15/20132012 56390 6003 SNOMED COMME NT: RECOR DED 04/07 7:51A M BY BRAYDEN RALPH, OFFIC E VISIT ; Jj Finley MD [address] [facility] [address], [facility] [place], [address], [facility] 4 08:14:32 94297 Avelox medicatio n rash moderate Not available 04/13/2014 97054 6 RxNorm delay ed hyper sensi tivit y react ion Lubna Edmund-Ariella dominguez MA null, [facility] 5 09:27:24 Medications Name Sig Start Date Stop Date Status Note LastModified by Organization Details LastModified Time Flomax 0.4 mg capsule Take 1 capsule every day by oral route. active Not Available Not Available No t Available atorvasta tin 40 mg tablet TAKE 1 TABLET(S ) EVERY DAY BY ORAL ROUTE FOR 90 DAYS. active Not Available Not Available No t Available enalapril maleate 10 mg tablet QD active RECORDED 11/11/19 08 7:51AM BY JJ FINLEY MD, YVONNE ON/ADDEN DUM; Not Available Not Available Not Available azithromy ani 250 mg tablet active Not Available Not Available No t Available acetazola mide 125 mg tablet Take by oral route as needed for 10 days. 06/05 completed Not Available Not Available Not Available moxifloxa ani 400 mg tablet DAILY 2011 active RECORDED 04/07/20 13 8:22AM BY JJ FINLEY MD, ANNOTATI ON/ADDEN DUM; Not Available Not Available Not Available metronida zole 500 mg tablet DAILY X 12 DAYS 2011 active RECORDED 04/07/20 13 8:22AM BY JJ FINLEY MD, YVONNE ON/ADDEN DUM; Not Available Not Available Not Available enalapril 10 mg-hydroc hlorothia zide 25 mg tablet TAKE 1 TABLET EVERY DAY 2016 active Not Available Not Available Not Avai lable propranol ol 10 mg tablet Take 1 tablet every day by oral route for 90 days. active Not Available Not Available No t Available Ambien 5 mg tablet AT BEDTIME 12/07/ 2012 active RECORDED 04/07/20 13 8:23AM BY JJ FINLEY MD, YVONNE ON/ADDEN DUM; Not Available Not Available Not Available Adult Aspirin EC Low Strength 81 mg tablet,de layed release Take 1 tablet every day by oral route. active Not Available Not Available No t Available Saccharom yces boulardii 250 mg capsule DAILY X 12 DAYS 2011 active RECORDED 04/07/20 13 8:23AM BY JJ FINLEY MD, YVONNE ON/ADDEN DUM; Not Available Not Available Not Available Vitamin D3 active Not Available Not Available Not Available oxycodone 10 mg tablet EVERY 4-6 HRS PRN 2011 active RECORDED 04/07/20 13 8:23AM BY JJ FINLEY MD, YVONNE ON/ADDEN DUM; Not Available Not Available Not Available Vitamin D3 50 mcg (2,000 unit) capsule Take 1 capsule every day by oral route. active Not Available Not Available No t Available Picato 0.015 % topical gel Apply by topical route for 3 days. active Not Available Not Available No t Available Vitals Date Recorded Body height Body temperature Oxygen saturation Oxygen saturation in Arterial blood by Pulse oximetry Heart rate Body weight Body mass index (BMI) Systolic blood pressure Diastolic blood pressure Provider Name and Address Organization Details Last Updated DateTime 7 173.99 cm 97.9 [degF] 96 % 96 % 59 /min 66565.2 9 g 29.7 kg/m2 116 mm[Hg] 69 mm[Hg] Lubna dominguez [facility] [place] 7 10:24:13 Date Recorded Oxygen saturation Oxygen saturation in Arterial blood by Pulse oximetry Body weight Heart rate Body mass index (BMI) Body height Body temperature Systolic blood pressure Diastolic blood pressure Provider Name and Address Organization Details Last Updated DateTime 4 97 % 97 % 79753.0 6637 g 58 /min 30.1 kg/m2 173.99 cm 97.9 [degF] 122 mm[Hg] 68 mm[Hg] Brayden Martinez [facility] [place] 4 08:00:03 Date Recorded Body height Oxygen saturation Oxygen saturation in Arterial blood by Pulse oximetry Body temperature Heart rate Body weight Body mass index (BMI) Systolic blood pressure Diastolic blood pressure Provider Name and Address Organization Details Last Updated DateTime 5 173.99 cm 96 % 96 % 97.3 [degF] 76 /min 59244.1 4267 g 28.6 kg/m2 126 mm[Hg] 68 mm[Hg] Lubna dominguez MA [facility] 5 09:30:50 Social History Question Answer Notes LastModified by Organizat ion Details LastModified Time Tobacco Smoking Status Former Smoker Brayden Durandemiliana gutierrez [facility] 04/13/2014 08:00:03 Do You Have An Advance Directive? Yes Emily Blair bsolivanEmbibettos Information not available 05/16/2015 What Is Your Level Of Alcohol Consumption? Occasional jaylene Information not available 04/13/2014 Is Blood Transfusion Acceptable In An Emergency? Yes Information not available 05/16/2015 What Is Your Level Of Caffeine Consumption? Moderate 1 Cup Of Coffee Daily bsolivanEmbibettos Information not available 05/16/2015 How Much Tobacco Do You Chew? None Information not available 05/16/2015 Are You Currently Employed? Yes [email or web address] Information not available 05/16/2015 Are You Deaf Or Do You Have Serious Difficulty Hearing? No [employer] Information not available 04/13/2014 What Type Of Diet Are You Following? REGULAR Information not available 05/16/2015 Which Illicit Or Recreational Drugs Have You Used? 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 With Others (Emily) [email or web address] Information not available 04/13/2014 Do You Take Precautions To Prevent Distracted Driving? Yes bsolivanEmbibettos Information not available 05/16/2015 How Often Do You Need To Have Someone Help You When You Read Instructions, Pamphlets, Or Other Written Material From Your Doctor Or Pharmacy? Never bsolivanEmbibettos Information not available 05/16/2015 Have You Served In The ? No Information not available 06/05/2016 Mar[facility] not available 04/13/2014 How Many Children Do You Have? 2 Information not available 05/16/2015 Do You Use Protection During Sex? No Information not available 05/16/2015 Difficulty Reading? No Acte[employer]oultOr[employer] Logicki Information not available 04/13/2014 Seat Belts Used Routinely Yes Information not available 05/16/2015 Are You Sexually Active? Yes Information not available 05/16/2015 Smoke Alarm In Home Yes Information not available 05/16/2015 At What Age Did You Start Smoking Tobacco? 18 Quit At 40 Information not available 05/16/2015 Are You Passively Exposed To Smoke? No Information not available 05/16/2015 How Much Tobacco Do You Smoke? 0.5 PPD Information not available 05/16/2015 Do You Use Sunscreen Routinely? No Information not available 05/16/2015 How Many Years Have You Smoked Tobacco? 22 Information not available 05/16/2015 Difficulty Watching TV? No Provade Information not available 04/13/2014 Sex: Unknown Functional Status Question Answer Note LastModified by Organizat ion Details LastModified Time Do you have difficulty walking or climbing stairs? No Provade Information not available 04/13/2014 Difficulty driving at night? No Provade Information not available 04/13/2014 Do you have difficulty doing errands alone? No Provade Information not available 04/13/2014 Are you able to care for yourself? Yes [email or web address] Information not available 05/16/2015 Do you have difficulty dressing or bathing? No Provade Information not available 04/13/2014 What is your exercise level? Moderate walking 4 mi per daily; strenuous labor on weekends Information not available 05/16/2015 Mental Status Question Answer Note LastModified by Organization D etails LastModified Time Do you have difficulty concentrating, remembering or making decisions? No Provade Information no t available 04/13/2014 Family History Relationship Description Onset Age of this Age Resolved Age Notes LastModified by Organization Details LastModified Time Mother Alzheimer's disease jaylene Not available 04/13 08:00:03 Sister Malignant tumor of breast jaylene Not available 04/13 08:00:03 Sister Malignant tumor of breast jaylene Not available 04/13 08:00:03 Sister Malignant melanoma jaylene Not available 04/13 08:00:03 Sister Malignant melanoma jaylene Not available 04/13 08:00:03 Medical History No medical history recorded. Immunizations Vaccine Type Date Status Note Provider Nam e and Address Organization Details Recorded Time pneumococcal polysaccharide PPV23 4 completed Not Available [facility] 06/[facility]/2019 02:21:42 Past Encounters Encounter ID Performer Location Encounter Start Date Encounter Closed Date Diagnosis/Indication Diagnosis SNOMED-CT Code Diagnosis ICD10 Code Diagnosis Note [id number] autoEComm erce [address] [facility] [place] [address] 04/23/2006 00:00:00 [id number] autoEComm erce [address] [facility] [place] [address] 04/23/2006 00:00:00 [id number] autoEComm erce [address] [facility] [place] [address] 04/23/2006 00:00:00 [id number] autoEComm erce [address] [facility] [place] [address] 04/23/2006 00:00:00 [id number] autoEComm erce [address] [facility] [place] [address] 07/30/2007 00:00:00 [id number] autoEComm erce [address] [facility] [place] [address] 07/30/2007 00:00:00 [id number] autoEComm erce [address] [facility] [place] [address] 07/30/2007 00:00:00 [id number] autoEComm erce [address] [facility] [place] [address] 07/30/2007 00:00:00 [id number] [address]Comm erce [address] [place] [address] 11/11/2007 00:00:00 [id number] auto[facility]Comm erce [address] [place] [address] 11/11/2007 00:00:00 [id number] autoEComm erce [address] [place] [address] 11/11/2007 00:00:00 [id number] autoEComm erce [address] [place] [address] 11/11/2007 00:00:00 [id number] autoEComm erce [address] [facility] [address] [place] [address] 05/25/2008 00:00:00 [id number] autoEComm erce [address] [facility] [address] [place] [address] 05/25/2008 00:00:00 [id number] autoEComm erce [address] [facility] [address] [place] [address] 05/25/2008 00:00:00 [id number] autoEComm erce [address] [facility] [address] [place] [address] 05/25/2008 00:00:00 [id number] autoEComm erce [address] [facility] [address] [place] [address] 04/04/2009 00:00:00 [id number] autoEComm erce [address] [facility] [facility] [address] [place] [address] 04/04/2009 00:00:00 [id number] autoEComm erce [address] [facility] [address] [place] [address] 04/04/2009 00:00:00 [id number] autoEComm erce [address] [facility] [facility] [address] [place] [address] 10/25/2009 00:00:00 [id number] autoEComm erce [address] [facility] [place] [address] 10/25/2009 00:00:00 [id number] autoEComm erce [address] [facility] [facility] [address] [place] [address] 10/16/2010 00:00:00 [id number] autoEComm erce [address] [facility] [place] [address] 10/16/2010 00:00:00 [id number] autoEComm erce [address] [facility] [place] [address] 12/10/2011 00:00:00 [id number] autoEComm erce [address] [place] [address] 12/10/2011 00:00:00 [id number] autoEComm erce [address] [facility] [place] [address] 04/01/2012 00:00:00 [id number] autoEComm erce [address] [facility] [place] [address] 04/01/2012 00:00:00 [id number] autoEComm erce [address] [facility] [place] [address] 04/07/2013 00:00:00 [id number] autoEComm erce [address] [facility] [place] [address] 04/07/2013 00:00:00 [id number] [facility] Main Office [address] [facility] [address] [place] [address] 04/13/2014 07:21:17 04/13/2014 09:06:55 Adult health examination 103873507 Administra tion of pneumococcal vaccine 99774203 Muscle pain 70434219 Blood in urine 11659772 Screening for malignant neoplasm of prostate 871199333 Hyperlipidemia 47021571 Vitamin D deficiency 61268428 Fatigue 17434120 Essential hypertension 56429493 Body mass index 30+ - obesity 831780539 [id number] Jj Finley MD Main Office [address] [facility] [address] [place] [address] 05/16/2015 09:15:45 05/16/2015 10:17:25 Adult health examination 458980127 Z00.00 Essential hypertension 39610961 I10 Obstructiv e sleep apnea syndrome 91522665 G47.33 Vitamin D deficiency 347 81061 E55.9 History of calculus of kidney 375115143 Z87.442 Varicella vaccination 68 024196 Z23 Hyperlipidemia 58183363 E78.5 [id number] Jj Finley MD Main Office [address] [facility] [address] [place] [address] 06/05/2016 10:04:08 06/05/2016 11:24:33 Adult health examination 745155816 Z00.00 Essential hypertension 53962846 I10 Obstructiv e sleep apnea syndrome 72287944 G47.33 Hyperlipidemia 70408446 E78.5 Epiretinal membrane 3676 69488 H35.373 Body mass index 25-29 - overweight 882507813 E66.3 History of calculus of kidney 929344280 Z87.442 Benign pro static hyperplasia 683515486 N40.[address] Salcedo Screening for malignant neoplasm of colon 391636868 Z12.11 Health Concerns Section Related Observation LastModified by Organization Detai ls LastModified Time None Recorded Concern Status LastModified by Organization Details LastModified Time None Recorded Advance Directives Directive Y: Emily Blair Payers Encounter Date Sequence Insurance Name Policy Number Policy Centeno Covered Member ID Centeno Member ID Guarantor Name 04/13/2014 1 [facility] [employer] [facility] (O) [id number] Marco Traorebrook [id number] Marco Johnnie 05/16/2015 1 [place] [employer] Marco Blair [id number] Marco Blair 05/16/2015 2 [facility] [employer] [facility] (O) [id number] Marco Traorebrook [id number] Marco Blair 06/05/2016 1 [place] [employer] Macro Blair [id number] Marco Blair 06/05/2016 2 [facility] (O) [id number] Marco Traorebrook [id number] Marco Blair Notes Date Note Type Note Provider Name and Address Organization Details Recorded Time 5 text/html HyperlipidemiaReported bypatient.Type of hyperlipidemia:hypercholest erolemia Duration:chronic Control:not at goal Current Therapy:No meds. Reviewed last year's values Complications:no coronary artery disease; no peripheral artery disease; no cardiovascular diseaseHypertension F/UReported bypatient.Associated Symptoms:no dizziness; no lightheadedness; no chest pain; no shortness of breath; no palpitations; no edema; no calf pain with exertion Lifestyle:regular exercise Medications:taking medications as directed; no side effects from medicationMedicare Annual Wellness VisitReported bypatient.Diet and Nutrition:healthy diet Fracture Risk:no history of fractures; no recent explained fracture Depression Risk:Normal PHQ 9 Here for wellness visit. Reviewed chronic medical problems and recent concerns. Discussed risk for CV events and elevated lipids at length. Jj Finley MD [address], [address], [facility] 04/28/2016 08:01:09 7 text/html HyperlipidemiaReported bypatient.Type of hyperlipidemia:hypercholest erolemia Control:usually well controlled; improving; at goal Current Therapy:statin Compliance:compliant Complications:no coronary artery disease; no peripheral artery disease; no cardiovascular diseaseHypertension F/UReported bypatient.Associated Symptoms:no dizziness; no lightheadedness; no chest pain; no shortness of breath; no palpitations; no edema; no calf pain with exertion Lifestyle:regular exercise Medications:taking medications as directed; no side effects from medicationMedicare Annual Wellness VisitReported bypatient.Diet and Nutrition:healthy diet Fracture Risk:no history of fractures; no recent explained fracture Depression Risk:Normal PHQ 9 Here for wellness visit. Reviewed chronic medical problems and recent concerns. Discussed risk for CV events. Tolerating statin without problems. Jj Finley MD [address], [address], [facility] 06/07/2016 19:22:05
--- OUTSIDE RECORDS SUMMARY | 2024-06-30 11:28 | XMS_ITS | Clinical Summary ---
Author Organization [facility] it Address [address] [place] [address] Care Team Providers Care Cover Seamer Name Role Phone Kvng Coello MD Primary Care Provider [phone] Surgical History Surgery Date Site/Laterality Comments OTHER SURGICAL HISTORY PROCEDURE: UT SIGMOIDOSCOPY FLX W/BIOPSY SINGLE/MULTIPLE Medical History Medical History Date Comments Diverticulitis DX:Diverticuliti s Hypertension DX:Hypertension BPH (benign prostatic hyperplasia) DX:BPH (benign prostatic hyperplasia) Bowel trouble DX:Bowel trouble Kidney stones DX:Kidney stones Kidney disease DX:Kidney diseas e Family History Medical History Relation Name Comments Breast cancer Neg Hx Melanoma Neg Hx Relation Name Status Comments Father Mother Social History Tobacco Use Types Packs/Day Years Used Date Smoking Tobacco: Former Smokeless Tobacco: Never Alcohol Use Standard Drinks/Week Comments Yes 0 (1 standard drink = 0.6 oz pur e alcohol) Sex and Gender Information Value Date Recorded Sex Assigned at Not on file Gender Identity Not on file Sexual Orientation Not on file Obstetrics History Plan of Treatment Health Maintenance Due Date Last Done Comments DTaP,Tdap,and Td Vaccines (1 - Tdap) 1964 Zoster Vaccines (1 of 2) 1995 Pneumococcal Vaccine: 65+ Ye ars (1 of 1 - PCV) 2010 RSV Immunization Patients 60 + Years Old (1 - 1-dose 75+ series) 2020 Cholesterol Screening (Lipid Panel) 05/05/2022 Depression Screening 05/05/2022 Falls Risk Assessment 05/05/2022 Hepatitis C Screening 05/05/2022 Social Influencers of Health Screening 05/05/2022 COVID-19 Vaccine ( - 2023-2 5 season) 2024 Influenza Vaccine (#1) 2024 HIB Vaccines Aged Out No longer eligi ble based on patient's age to complete this topic HPV Vaccines Aged Out No longer eligi ble based on patient's age to complete this topic Hepatitis A Vaccines Aged Out No long er eligible based on patient's age to complete this topic Hepatitis B Vaccines Aged Out No long er eligible based on patient's age to complete this topic IPV Vaccines Aged Out No longer eligi ble based on patient's age to complete this topic MMR Vaccines Aged Out No longer eligi ble based on patient's age to complete this topic Meningococcal ACWY Vaccine Aged Out N o longer eligible based on patient's age to complete this topic RSV Immunization Patients Un erik 20 months Aged Out No longer eligible b ased on patient's age to complete this topic Varicella Vaccines Aged Out No longer eligible based on patient's age to complete this topic Care Teams Cover Seamer Relationship Specialty Start Date End Date Kvng Coello MD [address] [place] [address], [address] [place] [address] PCP - General Internal Medicine 05/20/18
== END 2024-06-30 11:46 | disposition home or self-care (01) ==
PROVIDERS: PCP Internal Medicine; Visit Provider Urology
DX: Z13.9 Encounter for screening, unspecified (principal)

== ENCOUNTER → 2024-06-30 10:28 | Outpatient (BNVA) | payer MEDICARE, SELFPAY | PROVIDERS: PCP Internal Medicine; Visit Provider Urology | DX: N20.0 Calculus of kidney (principal); N40.1 Benign prostatic hyperplasia with lower urinary tract symptoms | CPT/HCPCS: 81003; 99212 ==